=== PATIENT | female | born 1935 | race African-American/Black ===

== ENCOUNTER 2017-04-19 09:59 | Inpatient (IN) | payer OTHER ==
--- NOTE | 2017-04-19 10:47 | PDOC ---
History of Present Illness - General Chief Complaint: Injury Stated Complaint: FALL Time Seen by Provider: 04/19/17 10:26 History Source: Patient Exam Limitations: No Limitations - History of Present Illness Initial Comments: 04/19/17 10:45 Patient is an 82F with history of CHF, CKD, HTN, Asthma, COPD, and DM here today sent by her PCP for falls, concern for chf versus acute renal failure. She says that she's fallen twice in the past week, once 6 days ago and another 4 days ago. 6 days ago, she fell and hit her face. 4 days ago, she fell to her knees. She denies any chest pain, shortness of breath, dizziness, palpitations and any sort of inciting event. She denies loss of consciousness, nausea, vomiting and confusion. She's complaining of increasing orthopnea, difficulty sleeping and increased leg swelling. She's also complaining of increasing erythema and discharge to her lower legs, especially on the right side. Denies fevers, endorses chills. Past History - Past Medical History Allergies/Adverse Reactions: Allergies Allergy/AdvReac Type Severity Reaction Status Date / Time colchicine [From Colcrys] Allergy Intermediate Swelling Verified 04/19/17 10:13 Home Medications: Ambulatory Orders Allopurinol [Zyloprim -] 200 mg PO DAILY 02/20/15 Aspirin Coated [Ecotrin -] 81 mg PO DAILY 02/20/15 Budesonide/Formeterol Fumarate [SYMBICORT 80/4.5mcg -] 1 inh PO BID 02/20/15 Glipizide [Glipizide ER] 2.5 mg PO DAILY 02/20/15 Lisinopril [Prinivil] 5 mg PO DAILY 02/20/15 Metoprolol Tartrate [Lopressor -] 100 mg PO BID 02/20/15 Omeprazole [Prilosec] 20 mg PO DAILY 02/20/15 Acetaminophen [Pain Reliever] 500 mg PO DAILY PRN 02/24/16 Clonidine Patch [Catapres Tts Patch -] 0.3 mg TD ASDIR 02/24/16 Furosemide [Lasix -] 40 mg PO BID 04/19/17 Anemia: Yes (s/p TKR) Asthma: Yes Cardiac Disorders: Yes (unsure, MD stated heart not what used to be) CVA: No COPD: Yes CHF: Yes Dementia: No Diabetes: Yes GI Disorders: No Disorders: Yes (RENAL INSUFFICIENCY) HTN: Yes Liver Disease: No Seizures: No Thyroid Disease: No - Surgical History Cholecystectomy: Yes Orthopedic Surgery: Yes (,FOOT SX) - Suicide/Smoking/Psychosocial Hx Smoking History: Former smoker Have you smoked in the past 12 months: No Number of Cigarettes Smoked Daily: 20 If you are a former smoker, when did you quit?: 2011 Information on smoking cessation initiated: No Hx Alcohol Use: No Drug/Substance Use Hx: No Substance Use Type: None Hx Substance Use Treatment: No Review of Systems - Review of Systems Comments:: 04/19/17 11:08 GENERAL/CONSTITUTIONAL: No fever. Positive for chills and weakness. HEAD, EYES, EARS, NOSE AND THROAT: No change in vision. No sore throat. CARDIOVASCULAR: No chest pain. Positive for shortness of breath. RESPIRATORY: No cough, wheezing, or hemoptysis. GASTROINTESTINAL: No nausea, vomiting, diarrhea or constipation. GENITOURINARY: No dysuria, frequency, or change in urination. SKIN: Positive for bilateral wounds and erythema in lower extremities NEUROLOGIC: No headache, vertigo, loss of consciousness, or change in strength/ sensation. ENDOCRINE: No increased thirst. No abnormal weight change ALLERGIC/IMMUNOLOGIC: No hives or skin allergy. *Physical Exam - Vital Signs Last Vital Signs Temp Pulse Resp BP Pulse Ox 97.4 F L 69 18 151/69 100 04/19/17 10:13 04/19/17 10:13 04/19/17 10:13 04/19/17 10:13 04/19/17 10:13 - Physical Exam Comments: 04/19/17 11:10 GENERAL: Awake, alert, and fully oriented, in no acute distress HEAD: No signs of trauma, normocephalic, atraumatic EYES: PERRLA, EOMI, sclera anicteric, conjunctiva clear ENT: Auricles normal inspection, hearing grossly normal, nares patent, oropharynx clear without exudates. Moist mucosa NECK: Normal ROM, supple, nontender LUNGS: No distress, speaks full sentences, clear to auscultation bilaterally HEART: Regular rate and rhythm, normal S1 and S2, no murmurs, rubs or gallops, peripheral pulses normal and equal bilaterally. ABDOMEN: Soft, nontender, normoactive bowel sounds. No guarding, no rebound. No masses EXTREMITIES: Bilateral swelling and erythema, right more than left. 2+ pitting edema to knee No clubbing or cyanosis. NEUROLOGICAL: Cranial nerves II through XII grossly intact. Normal speech, no focal sensorimotor deficits SKIN: Warm, Dry, normal turgor ED Treatment Course - LABORATORY CBC & Chemistry Diagram: 04/19/17 10:45 04/19/17 10:45 - RADIOLOGY Radiology Studies Ordered: Category Date Time Status HEAD CT WITHOUT CONTRAST [CT] Stat CT Scan 04/19/17 10:41 Ordered CHEST X-RAY PORTABLE* [RAD] Stat Radiology 04/19/17 10:38 Ordered Medical Decision Making - Medical Decision Making 04/19/17 11:11 82F with history of CHF, HTN, asthma, copd, CKD, and DM here today for falls and increasing CHF symptoms. Vital signs stable and normal. Concerned for CHF exacerbation, cellulitis and head injury. Will evaluate with wound culture, ekg , labs, cxr, and head ct. Will treat with vanc and zosyn. 04/19/17 11:28 Laboratory Tests 04/19/17 04/19/17 10:45 10:45 WBC 10.3 H Hgb 10.5 L D Hct 34.2 Plt Count 209 D BUN 44 H D Creatinine 1.7 H D CBC shows small white count. BUN 44, Cr 1.7. Above last baseline of 1.3. Will hold diuretics. EKG shows normal sinus rhythm, normal rate, normal axis, no st elevation or depression, no t-wave inversions. CXR shows mild cardiomegaly, no acute cardiopulmonary processes. 04/19/17 11:35 BNP 1.5k, trop neg 04/19/17 13:17 CT showed no acute changes 04/19/17 13:[address] Otoole. Admitted to med/surg inpatient. Wanted DVT ultrasound performed. Ordered. *DC/Admit/Observation/Transfer Diagnosis at time of Disposition: Cellulitis - Discharge Dispostion Condition at time of disposition: Stable Admit: Yes
[2017-04-19] MEDS ORDERED: PIPERACILLIN/TAZOB 4.5 GM/100 ML PRE-DOCKED IVPB ONE (10:48)
[2017-04-19] MEDS ORDERED: VANCOMYCIN 1,000 MG in DEXTROSE 5%-WATER - 250 ML IVPB ONE (10:48)
[2017-04-19 10:52] LABS: EOSINOPHIL 1.9 % (0-4.5); MCH 24.1 pg (25.7-33.7); MCHC 30.9 g/dl (32.0-36.0); MEAN CELL VOLUME 78.1 fl (80-96); NEUTROPHILS 80.7 % (42.8-82.8); PLATELET COUNT 209 K/MM3 (134-434); RDW 19.8 % (11.6-15.6); WHITE BLOOD COUNT 10.3 K/mm3 (4.0-10.0)
--- NOTE | 2017-04-19 10:57 | PDOC ---
Attending Attestation - HPI HPI: 04/19/17 11:21 The patient is a 82 year old female, with a significant past medical history of CHF, CAD, HLD,HTN, COPD, Anemia, Asthma who presents to the emergency department sent in by PCP for fall in the past few days. As per patient, she had two unwitnessed falls in her home. Patient states her legs have become increasingly weak. Patient denies any head trauma, LOC or injuries. Patient states after her last fall, she landed on her face however denies any current pain. Patient also complains of orthopnea and increasingly LE edema. She denies chest pain, headache or dizziness. She denies fever, chills, abdominal pain, nausea, vomit, diarrhea or constipation. She denies dysuria, frequency, urgency or hematuria. PCP: Dr. Albin Otoole - Physicial Exam PE: 04/19/17 11:21 GENERAL: Awake, alert, and fully oriented, in no acute distress HEAD: No signs of trauma EYES: PERRLA, EOMI, sclera anicteric, conjunctiva clear ENT: Auricles normal inspection, hearing grossly normal, nares patent, oropharynx clear without exudates. Moist mucosa NECK: Normal ROM, supple, no lymphadenopathy, JVD, or masses LUNGS: Breath sounds equal, clear to auscultation bilaterally. No wheezes, and no crackles HEART: Regular rate and rhythm, normal S1 and S2, no murmurs, rubs or gallops. ABDOMEN: Soft, nontender, normoactive bowel sounds. No guarding, no rebound. No masses EXTREMITIES: Normal range of motion. No clubbing or cyanosis. No cords or tenderness. +Mild erythema to RLE. + 3+ pitting edema. NEUROLOGICAL: CN II-XII intact, 5/5 strength upper and lower extremities, Sensation intact throughout all extremities, No pronator drift, Gait Normal, Speech Normal,Finger to nose intact, Rapid alternating movements intact SKIN: Warm, Dry, normal turgor, no rashes or lesions noted. - Medical Decision Making 04/19/17 11:21 Documentation prepared by Angela Larose, acting as certified medical technician for José Miguel Enciso MD <Angela Larose - Last Filed: 04/19/17 11:21> - Resident Resident Name: Fabio Shafer - ED Attending Attestation I have performed the following: I have examined & evaluated the patient, The case was reviewed & discussed with the resident, I agree w/resident's findings & plan, Exceptions are as noted - Medical Decision Making 04/19/17 10:57 Vital Signs Temp Pulse Resp BP Pulse Ox 97.4 F L 69 18 151/69 100 04/19/17 10:13 04/19/17 10:13 04/19/17 10:13 04/19/17 10:13 04/19/17 10:13 Past medical history of asthma, COPD, diabetes, hypertension, chronic kidney disease, congestive heart failure, coronary disease presents to the emergency department from her primary care physician's office Dr. Albin Otoole for fall. The patient has had 2 separate fall incidences. Her last fall was probably 6 days ago. Since then however, she's been complaining about erythema along the right anterior leg for 2 weeks but no fevers. Also states that she began increasing lotion edema and orthopnea. I suspect that the patient has cellulitis the right lower extremity. Labs and blood cultures ordered. We'll cover with empiric antibodies. However, given the lotion edema, we'll need to investigate CHF versus worsening CKD. Patient should ultimately be admitted to the hospital for further evaluation. 04/19/17 12:26 CT head reviewed. No acute findings. Chest xray reviewed. Mild cardiomegaly. CBC, BMP 04/19/17 10:45 04/19/17 10:45 CMP Sodium 144 mmol/L (136-145) 04/19/17 10:45 Potassium 4.1 mmol/L (3.5-5.1) 04/19/17 10:45 Chloride 108 mmol/L (98-107) H 04/19/17 10:45 Carbon Dioxide 25 mmol/L (21-32) 04/19/17 10:45 Anion Gap 11 (8-16) 04/19/17 10:45 BUN 44 mg/dL (7-18) H D 04/19/17 10:45 Creatinine 1.7 mg/dL (0.55-1.02) H D 04/19/17 10:45 Creat Clearance w eGFR 28.63 (>60) 04/19/17 10:45 Random Glucose 87 mg/dL (74-106) 04/19/17 10:45 Calcium 8.9 mg/dL (8.5-10.1) 04/19/17 10:45 Phosphorus 2.9 mg/dL (2.5-4.9) D 04/19/17 10:45 Magnesium 2.0 mg/dL (1.8-2.4) D 04/19/17 10:45 Total Bilirubin 0.6 mg/dL (0.2-1.0) 04/19/17 10:45 AST 56 U/L (15-37) H D 04/19/17 10:45 ALT 39 U/L (12-78) D 04/19/17 10:45 Alkaline Phosphatase 111 U/L (45-117) D 04/19/17 10:45 Creatine Kinase 1960 IU/L (26-192) H 04/19/17 10:45 Creatine Kinase Index 1.6 % (0.0-5.0) 04/19/17 10:45 CK-MB (CK-2) 32.028 ng/mL (0.5-3.6) H 04/19/17 10:45 Troponin I < 0.02 ng/ml (0.00-0.05) 04/19/17 10:45 B-Natriuretic Peptide 1446.65 pg/ml (5-450) H 04/19/17 10:45 Total Protein 6.3 g/dl (6.4-8.2) L 04/19/17 10:45 Albumin 3.1 g/dl (3.4-5.0) L 04/19/17 10:45 Cr is 1.7 Will admit the patient. <José Miguel Enciso - Last Filed: 04/19/17 12:26> Heart Score/ECG Review #1 ECG reviewed & interpreted by me at: 10:40 04/19/17 11:06 NSR 69, T wave flat III, no std/ephraim, QTC 458 msec <José Miguel Enciso - Last Filed: 04/19/17 12:26>
[2017-04-19 11:10] LABS: INR 1.12 (0.82-1.09); PROTHROMBIN TIME (PATIENT) 12.4 SEC (9.98-11.88)
[2017-04-19 11:19] LABS: ALBUMIN 3.1 g/dl (3.4-5.0); ANION GAP 11 (8-16); CALCIUM 8.9 mg/dL (8.5-10.1); CO2 25 mmol/L (21-32); GLUCOSE,RANDOM 87 mg/dL (74-106); PHOSPHOROUS 2.9 mg/dL (2.5-4.9)
[2017-04-19 11:22] LABS: BILIRUBIN,TOTAL 0.6 mg/dL (0.2-1.0); CREATININE 1.7 mg/dL (0.55-1.02); SGOT/AST 56 U/L (15-37); SGPT/ALT 39 U/L (12-78); TOT PROT 6.3 g/dl (6.4-8.2)
[2017-04-19 11:25] LABS: ALK PHOS 111 U/L (45-117); TROPONIN I < 0.02 ng/ml (0.00-0.05)
[2017-04-19] MEDS ORDERED: VANCOMYCIN 1 GRAM (PRE-DOCKED) 250 ML IVPB ONE (11:27)
[2017-04-19] MEDS ORDERED: CEFTRIAXONE 50 ML ONE (11:27)
[2017-04-19 11:46] LABS: CPK 1960 IU/L (26-192)
[2017-04-19] MEDS ORDERED: PIPERACILLIN/TAZOB 4.5 GM 100 ML IVPB ONE (11:51)
--- NOTE | 2017-04-19 13:50 | EKG ---
Test Reason : Blood Pressure : / mmHG Vent. Rate : 069 BPM Atrial Rate : 069 BPM P-R Int : 176 ms QRS Dur : 082 ms QT Int : 428 ms P-R-T Axes : 059 012 034 degrees QTc Int : 458 ms NORMAL SINUS RHYTHM NORMAL ECG WHEN COMPARED WITH ECG OF 25-FEB-2016 13:40, NO SIGNIFICANT CHANGE WAS FOUND Confirmed by SAM MAR MD ([id number]) on 04/19/2017 1:50:31 PM Referred By: Confirmed By:SAM MAR MD
--- NOTE | 2017-04-19 14:08 | PN ---
Progress Note (short form) - Note Progress Note: ID Discussed with Dr Otoole Issue now increasing LE edema chronic with redness and some pain in right leg NO fevers Selected Entries 04/19/17 10:13 Temperature 97.4 F L Pulse Rate 69 Respiratory 18 Rate Blood Pressure 151/69 Weight 230 lb Lung Clear Cor S1 S2 RR Abd Soft Ext Bilateral LE edema RLE red confluent multiple blisters forming in around the foot ankle Leg minimal tenderness no crepitance Laboratory Tests 04/19/17 04/19/17 10:45 10:45 WBC 10.3 H Hgb 10.5 L D Plt Count 209 D Creat Clearance w eGFR 28.63 AST 56 H D Assessment LE edema in the setting of CHF an COPD Blisters ? infected vs third spacing Diabetes Plan Blood cultures x 2 site CRP Unasy 3 gr then 1.5grs q12H Open blister and culture discussed with ER kaden Miranda MD Problem List - Problems (1) Cellulitis Code(s): L03.90 - CELLULITIS, UNSPECIFIED (2) JAYCOB (acute kidney injury) Code(s): N17.9 - ACUTE KIDNEY FAILURE, UNSPECIFIED (3) CHF (congestive heart failure) Code(s): I50.9 - HEART FAILURE, UNSPECIFIED (4) Diabetes 1.5, managed as type 2 Code(s): E10.9 - TYPE 1 DIABETES MELLITUS WITHOUT COMPLICATIONS
--- NOTE | 2017-04-19 15:02 | HP ---
Admitting History and Physical - Admission Chief Complaint: frequet falling. legs edematous chris. sob. cannote ambulate even w walker lyphoedema History of Present Illness: pt has thin line between renal vs chf History Source: Patient, Family Member Limitations to Obtaining History: Physical Impairment - Past Medical History CLINICAL TRIALS ASSISTANT: Yes: Other (--loss of vision for 30 min--self limited) Cardiovascular: Yes: HTN Pulmonary: Yes: Asthma, COPD Gastrointestinal: Yes: Constipation, GERD Renal/: Yes: Renal Inusuff (unclear baseline) Musculoskeletal: Yes: Chronic low back pain Endocrine: Yes: Diabetes Mellitus - Past Surgical History Past Surgical History: Yes: Appendectomy, Cholecystectomy, Colonoscopy (2011-- diverticulosis), Upper Endoscopy (--hiatal hernia(2011)) - Smoking History Smoking history: Former smoker Have you smoked in the past 12 months: No Aproximately how many cigarettes per day: 20 If you are a former smoker, when did you quit?: 2012 - Alcohol/Substance Use Hx Alcohol Use: No History of Substance Use: reports: None - Social History ADL: Family Assistance History of Recent Travel: No Home Medications - Allergies Allergies/Adverse Reactions: Allergies Allergy/AdvReac Type Severity Reaction Status Date / Time colchicine [From Colcrys] Allergy Intermediate Swelling Verified 04/19/17 10:13 - Home Medications Home Medications: Ambulatory Orders Allopurinol [Zyloprim -] 200 mg PO DAILY 02/20/15 Aspirin Coated [Ecotrin -] 81 mg PO DAILY 02/20/15 Budesonide/Formeterol Fumarate [SYMBICORT 80/4.5mcg -] 1 inh PO BID 02/20/15 Glipizide [Glipizide ER] 2.5 mg PO DAILY 02/20/15 Lisinopril [Prinivil] 5 mg PO DAILY 02/20/15 Metoprolol Tartrate [Lopressor -] 100 mg PO BID 02/20/15 Omeprazole [Prilosec] 20 mg PO DAILY 02/20/15 Acetaminophen [Pain Reliever] 500 mg PO DAILY PRN 02/24/16 Clonidine Patch [Catapres Tts Patch -] 0.3 mg TD ASDIR 02/24/16 Furosemide [Lasix -] 40 mg PO BID 04/19/17 Family Disease History - Family Disease History Family History: Unremarkable Review of Systems - Review of Systems Constitutional: reports: Other (falling weak) Eyes: reports: No Symptoms HENT: reports: No Symptoms Neck: reports: No Symptoms Cardiovascular: reports: Shortness of Breath Respiratory: reports: SOB Gastrointestinal: reports: No Symptoms Genitourinary: reports: No Symptoms Breasts: reports: No Symptoms Reported Musculoskeletal: reports: Back Pain, Decreased ROM Integumentary: reports: Other (legs blisters edema) Neurological: reports: No Symptoms Endocrine: reports: No Symptoms Hematology/Lymphatic: reports: No Symptoms Psychiatric: reports: No Symptoms Physical Examination Vital Signs: Vital Signs Temperature 97.4 F L 04/19/17 10:13 Pulse Rate 69 04/19/17 10:13 Respiratory Rate 18 04/19/17 10:13 Blood Pressure 151/69 04/19/17 10:13 O2 Sat by Pulse Oximetry (%) 100 04/19/17 10:25 Constitutional: Yes: Well Nourished Eyes: Yes: WNL HENT: Yes: WNL Neck: Yes: WNL Cardiovascular: Yes: Regular Rate and Rhythm Respiratory: Yes: Diminished Gastrointestinal: Yes: WNL ...Rectal Exam: Yes: Deferred Renal/: Yes: WNL Breast(s): Yes: WNL Musculoskeletal: Yes: Joint Stiffness Extremities: Yes: WNL Edema: Yes Edema: LLE: 3+, RLE: 3+ Peripheral Pulses WNL: Yes Integumentary: Yes: Venous Stasis Changes Neurological: Yes: WNL ...Motor Strength: WNL Psychiatric: Yes: WNL Assessment/Plan card f/u nefro f/u [place] cath measure i and o increase lasix dvt prophylaxis
[2017-04-19 15:21] LABS: C-REACTIVE PROTEIN 4.4 MG/DL (0.00-0.3)
[2017-04-19] MEDS ORDERED: AMPICILLIN NA/SULBACTAM NA 3 GM in SODIUM CHLORIDE 100 ML IVPB ONE (16:30)
[2017-04-19] MEDS ORDERED: FUROSEMIDE 40 MG/4 ML INJECTABLE VIAL IVPUSH STA (16:45)
[2017-04-19 17:04] VITALS: BMI 40.0
[2017-04-19] MEDS: glipiZIDE 5 MG TABLET (FP) PO SCH (17:13)
--- NOTE | 2017-04-19 20:48 | CONS ---
DATE OF CONSULTATION: DATE OF DICTATION: 04/19/2017 INFECTIOUS DISEASE CONSULTATION HISTORY OF PRESENT ILLNESS: This is an 82-year-old female with a history of CHF, COPD, hypertension, diabetes, and chronic kidney disease who I am asked to see for lower extremity cellulitis. The patient has chronic lymphedema, and her swelling has gotten recently worse. The history is that she has fallen twice in the past week and fell apparently to her knees. She denies any specific trauma to the lower extremities and denies any fever or chills, noting that the right lower extremity particularly has gotten red and mildly tender. She denies any fever, chills, or other systemic complaints, and is admitted for treatment of cellulitis. PAST MEDICAL HISTORY: As noted above. MEDICATIONS AT HOME: Allopurinol, aspirin, Symbicort, glipizide, lisinopril, metoprolol, omeprazole, clonidine, Lasix. ALLERGIES: COLCHICINE. SOCIAL HISTORY: Former smoker, gave this up several years ago, no history of substance abuse. No pets. No travel. No alcohol use. FAMILY HISTORY: Reviewed and noncontributory. REVIEW OF SYSTEMS: Respiratory: Positive for shortness of breath. No cough, hemoptysis, sputum production. Cardiac: No chest pain, palpitations, syncope, murmur. Gastrointestinal: No nausea, vomiting, diarrhea, abdominal pain. Genitourinary: No dysuria, hematuria, frequency. PHYSICAL EXAMINATION: General: She was an alert, pleasant, obese woman in mild respiratory distress. Vital signs: Temperature 97.4, pulse 69, blood pressure 150/70, respirations 18, weight 230 pounds, O2 saturation 100% room air. Neck: Supple. Lungs: Clear to percussion, auscultation. Heart: S1, S2. Regular rhythm without audible murmur. Abdomen: Soft. Positive bowel sounds, nontender. No localized guarding or rebound. No hepatosplenomegaly. Extremities: 3 to 4+ lower extremity anasarca with confluent erythema on the right lower extremity extending around the ankle and up below the knee. An incision on the left knee was noted, indicating prior total knee replacement on the left side. Multiple bullae noted on her dorsum of the foot around her ankle. No crepitation was present, and tenderness throughout the leg was minimal. The white count was 10.3, hemoglobin 10.5, platelets 209, BUN 44, creatinine 1.7, alkaline phosphatase 111, AST 56. ASSESSMENT: An 82-year-old female with multiple comorbidities including obesity, chronic obstructive pulmonary disease, and congestive heart failure presents now with worsening lower limb edema and anasarca associated with multiple bullae on the right lower extremity possibly representing part and parcel of infection or related to third spacing. PLAN: 1. Empiric therapy with ampicillin-sulbactam for polymicrobial coverage of soft tissue infection in light of her history of diabetes with multiple blisters. 2. Blood cultures x2 with CRP. 3. Elevation of the legs. 4. Additional problems include acute kidney injury, COPD, diabetes mellitus, and congestive heart failure. Case was discussed with emergency room staff. CHEVY ARANGO M.D. [id number]
[2017-04-19] MEDS: BUDESONIDE/FORMETEROL FUMARATE 80/4.5 mcg INHALER IH SCH (21:12)
[2017-04-19] MEDS: METOPROLOL TARTRATE 50 MG TABLET (FP) PO SCH (21:12)
[2017-04-19] MEDS ORDERED: FUROSEMIDE 40 MG/4 ML INJECTABLE VIAL IVPUSH ONE (22:00)
[2017-04-19] MEDS: AMPICILLIN NA/SULBACTAM NA 1.5 GM in SODIUM CHLORIDE 100 ML IVPB SCH (23:50)
[2017-04-20] MEDS: ACETAMINOPHEN 325 MG TABLET (FP) PO PRN ×2 (01:14→12:55)
[2017-04-20] MEDS: FUROSEMIDE 40 MG/4 ML INJECTABLE VIAL IVPB SCH ×2 (05:51→13:39)
[2017-04-20] MEDS: glipiZIDE 5 MG TABLET (FP) PO SCH ×2 (06:38→17:03)
[2017-04-20 07:35] LABS: BASOPHIL 0.3 % (0-2.0); EOSINOPHIL 1.8 % (0-4.5); MCH 24.6 pg (25.7-33.7); MCHC 30.9 g/dl (32.0-36.0); MEAN CELL VOLUME 79.6 fl (80-96); MEAN PLT VOLUME 9.5 fl (7.5-11.1); NEUTROPHILS 79.2 % (42.8-82.8); PLATELET COUNT 186 K/MM3 (134-434); RDW 20.2 % (11.6-15.6); WHITE BLOOD COUNT 9.2 K/mm3 (4.0-10.0)
[2017-04-20 07:56] LABS: ALBUMIN 2.5 g/dl (3.4-5.0); ALK PHOS 84 U/L (45-117); ANION GAP 5 (8-16); BILIRUBIN,TOTAL 0.3 mg/dL (0.2-1.0); CALCIUM 8.3 mg/dL (8.5-10.1); CO2 30 mmol/L (21-32); CREATININE 1.8 mg/dL (0.55-1.02); GLUCOSE,RANDOM 74 mg/dL (74-106); SGOT/AST 39 U/L (15-37); SGPT/ALT 31 U/L (12-78); TOT PROT 5.3 g/dl (6.4-8.2)
[2017-04-20] MEDS ORDERED: ASPIRIN 81 MG CHEWABLE TABLETS PO SCH (10:00)
[2017-04-20] MEDS: AMPICILLIN NA/SULBACTAM NA 1.5 GM in SODIUM CHLORIDE 100 ML IVPB SCH ×2 (10:52→21:16)
[2017-04-20] MEDS: LISINOPRIL 5 MG TABLET (FP) PO SCH (10:53)
[2017-04-20] MEDS: ASPIRIN COATED 81 MG TABLET.EC PO SCH (10:53)
[2017-04-20] MEDS: BUDESONIDE/FORMETEROL FUMARATE 80/4.5 mcg INHALER IH SCH ×2 (10:53→21:17)
[2017-04-20] MEDS: METOPROLOL TARTRATE 50 MG TABLET (FP) PO SCH ×2 (10:53→21:17)
[2017-04-20] MEDS: ALLOPURINOL 100 MG TABLET (FP) PO SCH (10:53)
[2017-04-20] MEDS: cloNIDine-TTS 0.3 MG /24 HRS PATCH.TDWK TD SCH (10:54)
--- NOTE | 2017-04-20 10:57 | PN ---
Progress Note, Physician History of Present Illness: pt feels less sob legs n/c - Current Medication List Current Medications: Active Medications Acetaminophen (Tylenol -) 650 mg PO Q6H PRN PRN Reason: FEVER OR PAIN Last Admin: 04/20/17 01:14 Dose: 650 mg Albuterol Sulfate (Ventolin Hfa Inhaler -) 2 puff IH Q4H PRN PRN Reason: SHORT OF BREATH/WHEEZING Allopurinol (Zyloprim -) 100 mg PO DAILY [facility] Aspirin (Ecotrin -) 81 mg PO DAILY [facility] Budesonide/Formoterol Fumarate (Symbicort 80/4.5mcg -) 2 puff IH BID [facility] Last Admin: 04/19/17 21:12 Dose: 2 puff Clonidine HCl (Catapres Tts Patch -) 0.3 mg TD Q7D@1000 [facility] Furosemide (Lasix Injection -) 80 mg IVPB BID@0600,1400 [facility] Last Admin: 04/20/17 05:51 Dose: 80 mg Glipizide (Glucotrol -) 5 mg PO BID@0700,1630 [facility] Last Admin: 04/20/17 06:38 Dose: Not Given Ampicillin Sodium/Sulbactam (Sodium 1.5 gm/ Sodium Chloride) 100 mls @ 200 mls/ hr IVPB BID [facility] Last Admin: 04/19/17 23:50 Dose: 200 mls/hr Lisinopril (Prinivil) 5 mg PO DAILY [facility] Metoprolol Tartrate (Lopressor -) 100 mg PO BID [facility] Last Admin: 04/19/17 21:12 Dose: 100 mg - Objective Vital Signs: Vital Signs Temperature 98.5 F 04/20/17 09:00 Pulse Rate 64 04/20/17 09:00 Respiratory Rate 22 04/20/17 09:00 Blood Pressure 134/63 04/20/17 09:00 O2 Sat by Pulse Oximetry (%) 98 04/20/17 01:00 Constitutional: Yes: Well Nourished Eyes: Yes: WNL HENT: Yes: WNL Neck: Yes: WNL Cardiovascular: Yes: WNL Respiratory: Yes: On Nasal O2, SOB on Exertion ...Rectal Exam: Yes: Deferred Genitourinary: Yes: [place] Present Breast(s): Yes: WNL Musculoskeletal: Yes: Joint Stiffness Extremities: Yes: WNL Edema: Yes Edema: LLE: 3+, RLE: 3+ Peripheral Pulses: Left Radial: 1+, Right Radial: 1+ Integumentary: Yes: Other (legs brueny lyphodema) Psychiatric: Yes: WNL Labs: CBC, BMP 04/20/17 06:00 04/20/17 06:00 INR, PTT INR 1.12 (0.82-1.09) 04/19/17 10:45 Assessment/Plan fs bid support stocking p/t started card to see pt ? lasix dosing oob d/c qid vss do them qd cont inhalers and o2 doubt if atx needed nefro to see pt watch renal numbers remember thin line chf vs renal comprimise chk iu and o
--- NOTE | 2017-04-20 14:05 | CONSULT ---
Consult Consult Specialty:: Nephrology Reason for Consultation:: JAYCOB - History of Present Illness Chief Complaint: lower extremity edema and shortness of breath History of Present Illness: Pt is an 82 year old female with pmhx of CHF, CKD, HTN, COPD, and DM who was sent in for shortness of breath and lower extremity edema. She says that she has increased swelling in her legs. She also complains of increased shortness of breath. She has increased fatigue and has not bee able to move around much. She felt better with the lasix. She denies nsaid use. She denies hematuria or dysuria. She is awake and alert. - History Source History Provided By: Patient, Medical Record - Past Medical History COMM[employer] HE[employer] COORDINATOR: Yes: Other (--loss of vision for 30 min--self limited) Cardio/Vascular: Yes: HTN Pulmonary: Yes: Asthma, COPD Gastrointestinal: Yes: Constipation, GERD Renal/: Yes: Renal Inusuff (unclear baseline) Musculoskeletal: Yes: Chronic low back pain Endocrine: Yes: Diabetes Mellitus - Past Surgical History Past Surgical History: Yes: Appendectomy, Cholecystectomy, Colonoscopy (2011-- diverticulosis), Upper Endoscopy (--hiatal hernia(2011)) - Alcohol/Substance Use Hx Alcohol Use: No History of Substance Use: reports: None - Smoking History Smoking history: Former smoker Have you smoked in the past 12 months: No Aproximately how many cigarettes per day: 20 If you are a former smoker, when did you quit?: 2011 - Social History ADL: Family Assistance History of Recent Travel: No Home Medications - Allergies Allergies/Adverse Reactions: Allergies Allergy/AdvReac Type Severity Reaction Status Date / Time colchicine [From Colcrys] Allergy Intermediate Swelling Verified 04/19/17 10:13 - Home Medications Home Medications: Ambulatory Orders Allopurinol [Zyloprim -] 200 mg PO DAILY 02/20/15 Aspirin Coated [Ecotrin -] 81 mg PO DAILY 02/20/15 Budesonide/Formeterol Fumarate [SYMBICORT 80/4.5mcg -] 1 inh PO BID 02/20/15 Glipizide [Glipizide ER] 2.5 mg PO DAILY 02/20/15 Lisinopril [Prinivil] 5 mg PO DAILY 02/20/15 Metoprolol Tartrate [Lopressor -] 100 mg PO BID 02/20/15 Omeprazole [Prilosec] 20 mg PO DAILY 02/20/15 Acetaminophen [Pain Reliever] 500 mg PO DAILY PRN 02/24/16 Clonidine Patch [Catapres Tts Patch -] 0.3 mg TD ASDIR 02/24/16 Furosemide [Lasix -] 40 mg PO BID 04/19/17 Family Disease History - Family Disease History Family History: Denies Review of Systems - Review of Systems Constitutional: reports: Malaise Eyes: reports: No Symptoms HENT: reports: No Symptoms Neck: reports: No Symptoms Cardiovascular: reports: Edema, Shortness of Breath Respiratory: reports: SOB, SOB on Exertion Genitourinary: reports: No Symptoms Musculoskeletal: reports: Extremity Pain Neurological: reports: No Symptoms Hematology/Lymphatic: reports: No Symptoms Psychiatric: reports: No Symptoms Physical Exam Vital Signs: Vital Signs Temperature 98.5 F 04/20/17 09:00 Pulse Rate 64 04/20/17 09:00 Respiratory Rate 22 04/20/17 09:00 Blood Pressure 134/63 04/20/17 09:00 O2 Sat by Pulse Oximetry (%) 100 04/20/17 09:00 Constitutional: Yes: Calm Eyes: Yes: Conjunctiva Clear HENT: Yes: Atraumatic Cardiovascular: Yes: S1, S2 Respiratory: Yes: On Nasal O2 Gastrointestinal: Yes: Soft, Abdomen, Obese Renal/: Yes: WNL Musculoskeletal: Yes: Muscle Weakness Edema: Yes Edema: LLE: 1+, RLE: 1+ Integumentary: Yes: Venous Stasis Changes Neurological: Yes: Oriented Psychiatric: Yes: Oriented Labs: CBC, BMP 04/20/17 06:00 04/20/17 06:00 Laboratory Tests 02/29/16 03/01/16 03/02/16 05:15 07:25 06:45 WBC Hgb Sodium Potassium Chloride Carbon Dioxide Anion Gap BUN Creatinine 1.3 H 1.3 H 1.3 H 04/19/17 04/19/17 04/20/17 10:45 10:45 06:00 WBC 10.3 H 9.2 Hgb 10.5 L D 9.5 L Sodium Potassium Chloride Carbon Dioxide Anion Gap BUN Creatinine 1.7 H D 04/20/17 06:00 WBC Hgb Sodium 144 Potassium 4.2 Chloride 109 H Carbon Dioxide 30 Anion Gap 5 L BUN 44 H Creatinine 1.8 H Imaging - Results Chest X-ray: Report Reviewed Problem List - Problems (1) CHF (congestive heart failure) Code(s): I50.9 - HEART FAILURE, UNSPECIFIED (2) Cellulitis Code(s): L03.90 - CELLULITIS, UNSPECIFIED (3) JAYCOB (acute kidney injury) Code(s): N17.9 - ACUTE KIDNEY FAILURE, UNSPECIFIED Assessment/Plan Current Medications Generic Name Dose Route Start Last Admin Trade Name Freq PRN Reason Stop Dose Admin Acetaminophen 650 mg 04/19/17 20:53 04/20/17 12:55 Tylenol - PO 650 mg Q6H PRN Administration FEVER OR PAIN Albuterol Sulfate 2 puff 04/19/17 15:17 Ventolin Hfa Inhaler - IH Q4H PRN SHORT OF BREATH/WHEEZING Allopurinol 100 mg 04/20/17 10:00 04/20/17 10:53 Zyloprim - PO 100 mg DAILY [facility] Administration Aspirin 81 mg 04/20/17 10:00 04/20/17 10:53 Ecotrin - PO 81 mg DAILY [facility] Administration Budesonide/Formoterol Fumarate 2 puff 04/19/17 22:00 04/20/17 10:53 Symbicort 80/4.5mcg - IH 2 puff BID [facility]IO Administration Clonidine HCl 0.3 mg 04/20/17 10:00 04/20/17 10:54 Catapres Tts Patch - TD 0.3 mg Q7D@1000 [facility] Administration Furosemide 80 mg 04/20/17 06:00 04/20/17 13:39 Lasix Injection - IVPB Not Given BID@0600,1400 [facility] Glipizide 5 mg 04/19/17 16:30 04/20/17 06:38 Glucotrol - PO Not Given BID@0700,1630 [facility] Ampicillin Sodium/Sulbactam 100 mls @ 200 mls/hr 04/19/17 22:00 04/20/17 10:52 Sodium 1.5 gm/ Sodium Chloride IVPB 200 mls/hr BID [facility] Administration Lisinopril 5 mg 04/20/17 10:00 04/20/17 10:53 Prinivil PO 5 mg DAILY [facility] Administration Metoprolol Tartrate 100 mg 04/19/17 22:00 04/20/17 10:53 Lopressor - PO 100 mg BID [facility] Administration Impression 1. JAYCOB 2. dyspnea 3. HTN 4. COPD 5. DM Plan - check renal ultrasound - check ua and lytes - hold lasix today - discussed with pmd - cont lisinopril but hold if renal function worsens tomorrow - check echo - will follow Dr Valero
--- NOTE | 2017-04-20 15:17 | PN ---
Progress Note, Physician Chief Complaint: Awake, alert No c/o leg pain No fever/ chills - Current Medication List Current Medications: Active Medications Acetaminophen (Tylenol -) 650 mg PO Q6H PRN PRN Reason: FEVER OR PAIN Last Admin: 04/20/17 12:55 Dose: 650 mg Albuterol Sulfate (Ventolin Hfa Inhaler -) 2 puff IH Q4H PRN PRN Reason: SHORT OF BREATH/WHEEZING Allopurinol (Zyloprim -) 100 mg PO DAILY [facility] Last Admin: 04/20/17 10:53 Dose: 100 mg Aspirin (Ecotrin -) 81 mg PO DAILY [facility] Last Admin: 04/20/17 10:53 Dose: 81 mg Budesonide/Formoterol Fumarate (Symbicort 80/4.5mcg -) 2 puff IH BID [facility] Last Admin: 04/20/17 10:53 Dose: 2 puff Clonidine HCl (Catapres Tts Patch -) 0.3 mg TD Q7D@1000 [facility] Last Admin: 04/20/17 10:54 Dose: 0.3 mg Furosemide (Lasix Injection -) 80 mg IVPB BID@0600,1400 [facility] Last Admin: 04/20/17 13:39 Dose: Not Given Glipizide (Glucotrol -) 5 mg PO BID@0700,1630 [facility] Last Admin: 04/20/17 06:38 Dose: Not Given Ampicillin Sodium/Sulbactam (Sodium 1.5 gm/ Sodium Chloride) 100 mls @ 200 mls/ hr IVPB BID [facility] Last Admin: 04/20/17 10:52 Dose: 200 mls/hr Lisinopril (Prinivil) 5 mg PO DAILY [facility] Last Admin: 04/20/17 10:53 Dose: 5 mg Metoprolol Tartrate (Lopressor -) 100 mg PO BID [facility] Last Admin: 04/20/17 10:53 Dose: 100 mg - Objective Vital Signs: Vital Signs Temperature 98.5 F 04/20/17 14:31 Pulse Rate 61 04/20/17 14:31 Respiratory Rate 18 04/20/17 14:31 Blood Pressure 113/44 04/20/17 14:31 O2 Sat by Pulse Oximetry (%) 100 04/20/17 09:00 Constitutional: Yes: Obese Cardiovascular: Yes: Regular Rate and Rhythm, S1, S2 Respiratory: Yes: CTA Bilaterally Gastrointestinal: Yes: Normal Bowel Sounds, Soft, Abdomen, Obese Extremities: Yes: Other (+ erythema R LE No blisters) Integumentary: Yes: Venous Stasis Changes Labs: CBC, BMP 04/20/17 06:00 04/20/17 06:00 INR, PTT INR 1.12 (0.82-1.09) 04/19/17 10:45 Assessment/Plan Cellulitis R LE +wound c/s mixed Await c/s Continue unasyn
[2017-04-20 19:08] LABS: URINE APPEARANCE CLEAR; URINE BILIRUBIN NEGATIVE (NEGATIVE); URINE BLOOD 2+ (NEGATIVE); URINE COLOR YELLOW; URINE GLUCOSE (UA) NEGATIVE (NEGATIVE); URINE KETONE NEGATIVE (NEGATIVE); URINE LEUK ESTERASE NEGATIVE (NEGATIVE); URINE NITRITE NEGATIVE (NEGATIVE); URINE PROTEIN NEGATIVE (NEGATIVE)
--- NOTE | 2017-04-20 19:34 | CONS ---
DATE OF CONSULTATION: 04/20/2017 TIME OF CONSULTATION: 5:20 p.m. CONSULTATION REQUESTED BY: Albin Otoole MD CARDIOLOGY CONSULTATION CHIEF COMPLAINTS: 1. Progressive and extreme fatigue. 2. Profound weakness. 3. Increased somnolence. The patient is an 82-year-old female with history of hypertension, xvn-[id number] diabetes mellitus, bronchial asthma/bronchitis, chronic obstructive pulmonary disease, chronic kidney disease, history of congestive heart failure. Patient was admitted with 2 weeks history of progressive and profound fatigue associated with generalized weakness and had 2 falls in the house when she tried to stand up. Patient has chronic exertional dyspnea, is unable to walk more than 50 yards. At times she has paroxysmal nocturnal dyspnea and has 3-pillow orthopnea. She has a chronic cough that is nonproductive. There is no history of chest, arm, jaw pain or discomfort. Denies having palpitations. She has been noticing increasing pedal edema and had breakdown of the skin and developed cellulitis on both lower extremities. There is no history of lightheadedness, dizziness, presyncope, or syncope. No palpitations were reported. No history of rheumatic fever. States she has generalized osteoarthritis and currently is also complaining of low back pain and has difficulty in moving in the bed. PAST HISTORY: As mentioned in the history of present illness. SURGICAL HISTORY: 1. Status post left rotator cuff surgery. 2. Status post hysterectomy and appendectomy. 3. Status post cholecystectomy. 4. Status post left knee replacement. 5. Status post bilateral cataract extractions. 6. Status post surgery on the 2nd left toe. SOCIAL HISTORY: She is retired, is a , has no children. Used to smoke 1 pack of cigarettes per day starting at the age of 13 and stopped 4 years ago. She states that she has moderate amount of alcohol, drinks 12 to 16 cups of coffee per day. FAMILY HISTORY: Father in his 70s of a myocardial infarction, was a known case of coronary artery disease, status post coronary artery bypass grafting, had chronic obstructive pulmonary disease, was hypertensive, and a smoker. Mother at the age of 86. She was hypertensive, had coronary artery disease, angina pectoris. She had 4 sisters; all of them are : One of aneurysm of the brain; 2 sisters of coronary artery disease, myocardial infarction; and a 4th sister related to cancer, site uncertain. ALLERGIES: As documented in the chart, COLCHICINE. CURRENT MEDICATIONS: 1. Symbicort 2 inhalations b.i.d. 2. Lisinopril 5 mg p.o. daily. 3. Ampicillin 1.5 g IV b.i.d. 4. Allopurinol 100 mg p.o. daily. 5. Albuterol 2 inhalations q.i.d. p.r.n. 6. Metoprolol tartrate 100 mg p.o. b.i.d. 7. Clonidine 0.3 mg patch. 8. Lasix 80 mg IV daily. 9. Aspirin 81 mg p.o. daily. 10. Glipizide 5 mg p.o. b.i.d. before meals. REVIEW OF SYSTEMS: Constitutional: No history of chills, fever or night sweats reported. No history of unintentional weight loss. HEENT: Occasional generalized headache. No history of diplopia, blurred vision reported. No history of epistaxis, hoarseness, tinnitus or deafness. Cardiovascular: See history of present illness. Respiratory: See history of present illness. No history of hemoptysis or tuberculosis. Gastrointestinal: No history of nausea, vomiting, melena, or hematemesis. No history of loss of appetite. No history of abdominal pain or discomfort. No history of change in bowel habits. Central nervous system: No history of seizures, syncope, focal weakness. See history of present illness. Musculoskeletal: History of generalized osteoarthritis. No history of myalgias. Endocrine: See history of present illness. Denies having polyuria or polydipsia. No history of intolerance to cold or warm weather. Genitourinary: Denies having dysuria, frequency, urgency or hematuria. See history of present illness. Hematological: No history of anemia. No history of ecchymosis or bleeding. EXAMINATION: General: An 82-year-old obese female, who was in no acute distress. There was no pallor. There was ? circumoral cyanosis. Vital Signs: Weight 260 pounds. Blood pressure 109/45 mmHg. Pulse 62 beats per minute and regular. Temperature 98.7 degrees Fahrenheit. Respirations were 18 per minute. Oxygen saturation on nasal oxygen was 100%. HEENT: Normocephalic. Pupils were equal, reacting to light and accommodation. No scleral icterus or conjunctival pallor. Bilateral arcus senilis. Neck: Short, supple. No jugular venous distention. Carotids were 1 to 2+. Upstrokes grossly appeared to be normal. No bruits were appreciated and no thyromegaly was felt. Heart: PMI was not localized. No heaves or thrills. Heart sounds were distant. No murmur or gallops were appreciated. Lungs: Decreased breath sounds at both bases. No extraneous sounds were heard. Abdomen: Markedly obese, soft and nontender. No hepatosplenomegaly or palpable masses were appreciated. Bowel sounds were distant. No bruits were appreciated. Extremities: Both lower extremities were wrapped. Dorsalis pedis and posterior tibial pulses could not be palpated. LABORATORY DATA: ECG dated April 19, 2017: Normal sinus rhythm, nonspecific T-wave changes. Compared to ECG of February 25, 2016, no major changes were reported. X-ray of chest, April 19, 2017: Impression: Mild cardiomegaly without evidence of acute lung disease. LABORATORY DATA: CBC: WBC count 9200, hemoglobin was 9.5 g/dL. There were microcytic cell indices. Platelet count was 186,000. Chemistry: Sodium 144, potassium 4.2, chloride 109, CO2 of 13 mmol/L. BUN 44, creatinine 1.8 mg/dL. AST was slightly elevated at 39. Total protein 5.3, albumin was 2.5 g/dL. CK on admission was 1960, troponin was less than 0.002. BNP was elevated at 1446.65. IMPRESSION: 1. Hypertension, hypertensive cardiovascular disease. 2. History of asthmatic bronchitis/chronic obstructive pulmonary disease. 3. Profound fatigue, increased somnolence, and generalized weakness. Etiology: A. Coronary artery disease, angina pectoris. B. Obstructive sleep apnea syndrome. C. Hypothyroidism needs to be excluded. 4. Microcytic anemia. 5. Cellulitis of both lower extremities. 6. Chronic kidney disease. 7. Morbid obesity. 8. Congestive heart failure/cor pulmonale needs exclusion. RECOMMENDATIONS: 1. T3, T4, TSH. 2. Echocardiogram. 3. Evaluation of anemia and appropriate correction. 4. Continue current antihypertensive therapy. 5. Daily weight. 6. Check oxygen saturation on exertion. 7. Patient should be evaluated for obstructive sleep apnea syndrome, if not already done. PROGNOSIS: Guarded. Thank you for your referral. Yours sincerely, Aishwarya [id number]
[2017-04-20] MEDS ORDERED: PT OWN MED DRAWER 7, Y5N ONE (20:41)
[2017-04-20 20:52] LABS: URINE MUCUS RARE; URINE RBC 5 /hpf (0-3); URINE WBC 4 /hpf (3-5)
[2017-04-21] MEDS: glipiZIDE 5 MG TABLET (FP) PO SCH ×2 (07:13→16:42)
[2017-04-21 07:33] LABS: BASOPHIL 0.3 % (0-2.0); EOSINOPHIL 2.6 % (0-4.5); MCH 24.7 pg (25.7-33.7); MCHC 30.9 g/dl (32.0-36.0); MEAN CELL VOLUME 79.7 fl (80-96); MEAN PLT VOLUME 9.1 fl (7.5-11.1); NEUTROPHILS 76.4 % (42.8-82.8); PLATELET COUNT 187 K/MM3 (134-434); RDW 19.9 % (11.6-15.6); WHITE BLOOD COUNT 9.1 K/mm3 (4.0-10.0)
[2017-04-21 07:48] LABS: ANION GAP 5 (8-16); CALCIUM 7.9 mg/dL (8.5-10.1); CO2 30 mmol/L (21-32); CREATININE 1.6 mg/dL (0.55-1.02); GLUCOSE,RANDOM 98 mg/dL (74-106)
[2017-04-21] MEDS ORDERED: PT OWN MED DRAWER 7, Y5N ONE ×3 (09:23→21:23)
[2017-04-21] MEDS: ALLOPURINOL 100 MG TABLET (FP) PO SCH (09:26)
[2017-04-21] MEDS: LISINOPRIL 5 MG TABLET (FP) PO SCH (09:26)
[2017-04-21] MEDS: METOPROLOL TARTRATE 50 MG TABLET (FP) PO SCH ×2 (09:26→22:21)
[2017-04-21] MEDS: BUDESONIDE/FORMETEROL FUMARATE 80/4.5 mcg INHALER IH SCH ×2 (09:26→22:21)
[2017-04-21] MEDS: ASPIRIN COATED 81 MG TABLET.EC PO SCH (09:26)
[2017-04-21] MEDS: AMPICILLIN NA/SULBACTAM NA 1.5 GM in SODIUM CHLORIDE 100 ML IVPB SCH ×2 (09:27→22:21)
--- NOTE | 2017-04-21 12:59 | PN ---
Progress Note, Physician Chief Complaint: comfortable vss p/t oob lasix 40 bid zen bianka and tyrellsandoval to see pt chk labs in am jin scott today - Current Medication List Current Medications: Active Medications Acetaminophen (Tylenol -) 650 mg PO Q6H PRN PRN Reason: FEVER OR PAIN Last Admin: 04/20/17 12:55 Dose: 650 mg Albuterol Sulfate (Ventolin Hfa Inhaler -) 2 puff IH Q4H PRN PRN Reason: SHORT OF BREATH/WHEEZING Allopurinol (Zyloprim -) 100 mg PO DAILY [facility] Last Admin: 04/21/17 09:26 Dose: 100 mg Aspirin (Ecotrin -) 81 mg PO DAILY [facility] Last Admin: 04/21/17 09:26 Dose: 81 mg Budesonide/Formoterol Fumarate (Symbicort 80/4.5mcg -) 2 puff IH BID [facility] Last Admin: 04/21/17 09:26 Dose: 2 puff Clonidine HCl (Catapres Tts Patch -) 0.3 mg TD Q7D@1000 [facility] Last Admin: 04/20/17 10:54 Dose: 0.3 mg Furosemide (Lasix Injection -) 80 mg IVPB BID@0600,1400 [facility] Last Admin: 04/20/17 13:39 Dose: Not Given Furosemide (Lasix Injection -) 40 mg IVPB BID@0600,1400 [facility] Glipizide (Glucotrol -) 5 mg PO BID@0700,1630 [facility] Last Admin: 04/21/17 07:13 Dose: Not Given Ampicillin Sodium/Sulbactam (Sodium 1.5 gm/ Sodium Chloride) 100 mls @ 200 mls/ hr IVPB BID [facility] Last Admin: 04/21/17 09:27 Dose: 200 mls/hr Lisinopril (Prinivil) 5 mg PO DAILY [facility] Last Admin: 04/21/17 09:26 Dose: 5 mg Metoprolol Tartrate (Lopressor -) 100 mg PO BID [facility] Last Admin: 04/21/17 09:26 Dose: 100 mg - Objective Vital Signs: Vital Signs Temperature 98.6 F 04/21/17 09:00 Pulse Rate 69 04/21/17 09:00 Respiratory Rate 20 04/21/17 09:00 Blood Pressure 116/52 04/21/17 09:00 O2 Sat by Pulse Oximetry (%) 100 09/20/17 09:00 Labs: CBC, BMP 04/21/17 06:00 04/21/17 06:00 INR, PTT INR 1.12 (0.82-1.09) 04/19/17 10:45
--- NOTE | 2017-04-21 14:47 | PN ---
Progress Note, Physician History of Present Illness: Pt seen and examined at bedside. She is awake and alert. She feels that her breathing is improved today. - Current Medication List Current Medications: Active Medications Acetaminophen (Tylenol -) 650 mg PO Q6H PRN PRN Reason: FEVER OR PAIN Last Admin: 04/20/17 12:55 Dose: 650 mg Albuterol Sulfate (Ventolin Hfa Inhaler -) 2 puff IH Q4H PRN PRN Reason: SHORT OF BREATH/WHEEZING Allopurinol (Zyloprim -) 100 mg PO DAILY [facility] Last Admin: 04/21/17 09:26 Dose: 100 mg Aspirin (Ecotrin -) 81 mg PO DAILY [facility] Last Admin: 04/21/17 09:26 Dose: 81 mg Budesonide/Formoterol Fumarate (Symbicort 80/4.5mcg -) 2 puff IH BID [facility] Last Admin: 04/21/17 09:26 Dose: 2 puff Clonidine HCl (Catapres Tts Patch -) 0.3 mg TD Q7D@1000 [facility] Last Admin: 04/20/17 10:54 Dose: 0.3 mg Furosemide (Lasix Injection -) 80 mg IVPB BID@0600,1400 [facility] Last Admin: 04/20/17 13:39 Dose: Not Given Furosemide (Lasix Injection -) 40 mg IVPB BID@0600,1400 [facility] Glipizide (Glucotrol -) 5 mg PO BID@0700,1630 [facility] Last Admin: 04/21/17 07:13 Dose: Not Given Ampicillin Sodium/Sulbactam (Sodium 1.5 gm/ Sodium Chloride) 100 mls @ 200 mls/ hr IVPB BID [facility] Last Admin: 04/21/17 09:27 Dose: 200 mls/hr Lisinopril (Prinivil) 5 mg PO DAILY [facility] Last Admin: 04/21/17 09:26 Dose: 5 mg Metoprolol Tartrate (Lopressor -) 100 mg PO BID [facility] Last Admin: 04/21/17 09:26 Dose: 100 mg - Objective Vital Signs: Vital Signs Temperature 98.6 F 04/21/17 09:00 Pulse Rate 69 04/21/17 09:00 Respiratory Rate 20 04/21/17 09:00 Blood Pressure 116/52 04/21/17 09:00 O2 Sat by Pulse Oximetry (%) 100 04/21/17 09:00 Constitutional: Yes: Calm Eyes: Yes: Conjunctiva Clear HENT: Yes: Atraumatic Cardiovascular: Yes: S1, S2 Respiratory: Yes: On Nasal O2 Gastrointestinal: Yes: Soft, Abdomen, Obese Genitourinary: Yes: WNL Musculoskeletal: Yes: WNL Edema: Yes Edema: LLE: 1+, RLE: 1+ Neurological: Yes: Oriented Psychiatric: Yes: Oriented Labs: CBC, BMP 04/21/17 06:00 04/21/17 06:00 INR, PTT INR 1.12 (0.82-1.09) 04/19/17 10:45 Problem List - Problems (1) CHF (congestive heart failure) Code(s): I50.9 - HEART FAILURE, UNSPECIFIED (2) Cellulitis Code(s): L03.90 - CELLULITIS, UNSPECIFIED (3) JAYCOB (acute kidney injury) Code(s): N17.9 - ACUTE KIDNEY FAILURE, UNSPECIFIED Assessment/Plan Current Medications Generic Name Dose Route Start Last Admin Trade Name Freq PRN Reason Stop Dose Admin Acetaminophen 650 mg 04/19/17 20:53 04/20/17 12:55 Tylenol - PO 650 mg Q6H PRN Administration FEVER OR PAIN Albuterol Sulfate 2 puff 04/19/17 15:17 Ventolin Hfa Inhaler - IH Q4H PRN SHORT OF BREATH/WHEEZING Allopurinol 100 mg 04/20/17 10:00 04/21/17 09:26 Zyloprim - PO 100 mg DAILY [facility] Administration Aspirin 81 mg 04/20/17 10:00 04/21/17 09:26 Ecotrin - PO 81 mg DAILY [facility] Administration Budesonide/Formoterol Fumarate 2 puff 04/19/17 22:00 04/21/17 09:26 Symbicort 80/4.5mcg - IH 2 puff BID [facility] Administration Clonidine HCl 0.3 mg 04/20/17 10:00 04/20/17 10:54 Catapres Tts Patch - TD 0.3 mg Q7D@1000 [facility] Administration Furosemide 80 mg 04/20/17 06:00 04/20/17 13:39 Lasix Injection - IVPB Not Given BID@0600,1400 [facility] Furosemide 40 mg 04/21/17 14:00 Lasix Injection - IVPB BID@0600,1400 [facility] Glipizide 5 mg 04/19/17 16:30 04/21/17 07:13 Glucotrol - PO Not Given BID@0700,1630 [facility] Ampicillin Sodium/Sulbactam 100 mls @ 200 mls/hr 04/19/17 22:00 04/21/17 09:27 Sodium 1.5 gm/ Sodium Chloride IVPB 200 mls/hr BID [facility] Administration Lisinopril 5 mg 04/20/17 10:00 04/21/17 09:26 Prinivil PO 5 mg DAILY [facility] Administration Metoprolol Tartrate 100 mg 04/19/17 22:00 04/21/17 09:26 Lopressor - PO 100 mg BID [facility] Administration Impression 1. JAYCOB 2. dyspnea 3. HTN 4. COPD 5. DM Plan - follow up renal ultrasound - renal function is improving - will give a dose of lasix today - 2 gram sodium diet - cont lisinopril - spoke to nurse, she will give her a dose of lasix - will follow Dr Valero
--- NOTE | 2017-04-21 16:34 | PN ---
Progress Note (short form) - Note Progress Note: continued leg pain Vital Signs Period Temp Pulse Resp BP Sys/Red Pulse Ox Last 24 Hr 98.2 F-99.8 F 63-70 18-20 108-125/45-58 99-100 cor-rrr lungs clear abd soft,nt ext less erythema and tenderness of the RLE CBC, BMP 04/21/17 06:00 04/21/17 06:00 Microbiology 04/19/17 10:51 Wound Gram Stain - Final 04/19/17 10:51 Wound Wound Culture - Preliminary Non Lactose Fermenting Gnb Staphylococcus Coagulase Neg 04/19/17 15:15 Blood - Peripheral Venous Blood Culture - Preliminary NO GROWTH OBTAINED AFTER 48 HOURS, INCUBATION TO CONTINUE FOR 3 DAYS. 04/19/17 15:15 Blood - Peripheral Venous Blood Culture - Preliminary NO GROWTH OBTAINED AFTER 48 HOURS, INCUBATION TO CONTINUE FOR 3 DAYS. a/p RLE cellulitis- improving on unasyn
[2017-04-21] MEDS: FUROSEMIDE 40 MG/4 ML INJECTABLE VIAL IVPB SCH (16:42)
--- NOTE | 2017-04-21 17:12 | PN ---
Progress Note (short form) - Note Progress Note: 82 year old AA female,known case of hypertension,recent syncope,NIDDm.bronchial asthma.copd.hypertension.H/o was recent progressive headache,admitted wih sudden LOC of syncope,which occurred after he had severe and transient LOC.Currentiy doing better,still c/o mild lightheadedness on standing.mild sob, no PND or orthopnea.tolerating therapy. Active Medications Acetaminophen (Tylenol -) 650 mg PO Q6H PRN PRN Reason: FEVER OR PAIN Last Admin: 04/20/17 12:55 Dose: 650 mg Albuterol Sulfate (Ventolin Hfa Inhaler -) 2 puff IH Q4H PRN PRN Reason: SHORT OF BREATH/WHEEZING Allopurinol (Zyloprim -) 100 mg PO DAILY [facility] Last Admin: 04/21/17 09:26 Dose: 100 mg Aspirin (Ecotrin -) 81 mg PO DAILY [facility] Last Admin: 04/21/17 09:26 Dose: 81 mg Budesonide/Formoterol Fumarate (Symbicort 80/4.5mcg -) 2 puff IH BID [facility] Last Admin: 04/21/17 09:26 Dose: 2 puff Clonidine HCl (Catapres Tts Patch -) 0.3 mg TD Q7D@1000 [facility] Last Admin: 04/20/17 10:54 Dose: 0.3 mg Furosemide (Lasix Injection -) 80 mg IVPB BID@0600,1400 [facility] Last Admin: 04/20/17 13:39 Dose: Not Given Furosemide (Lasix Injection -) 40 mg IVPB BID@0600,1400 [facility] Last Admin: 04/21/17 16:42 Dose: 40 mg Glipizide (Glucotrol -) 5 mg PO BID@0700,1630 [facility] Last Admin: 04/21/17 16:42 Dose: 5 mg Ampicillin Sodium/Sulbactam (Sodium 1.5 gm/ Sodium Chloride) 100 mls @ 200 mls/ hr IVPB BID [facility] Last Admin: 04/21/17 09:27 Dose: 200 mls/hr Lisinopril (Prinivil) 5 mg PO DAILY [facility] Last Admin: 04/21/17 09:26 Dose: 5 mg Metoprolol Tartrate (Lopressor -) 50 mg PO BID [facility] 82 year old obese female in no distress,no pallor, cyanosis,clubbing or jaundice Vital Signs - 8 hr 04/21/17 14:55 Temperature 98.2 F Pulse Rate 70 Respiratory 18 Rate Blood Pressure 125/53 NECK: Supple, no JVD,-ve HJR,carotids2+,no bruits or thyromegaly. HEART: PMI was not localised,distant sounds,no murmur or gallops heard LUNGS: Clear on auscultation. ABDOMEN: Obese,soft,no organomegaly,no palpable masses. EXTREMITIES: No calf tenderness,stasis changes,trace bilateral edema. CBC, BMP 04/21/17 06:00 04/21/17 06:00 IMPRESSION: 1.CHF,partly related to LV diastolic dysfunction. 2.Poor compliance. 3.Hypertension/HCVD. 4.Asthmatic bronchitis. 5.COPD. 6.Morbid obesity. 7.CKD. 8.Intermittent low BP, asymptomatic. RECOMMENdATION: 1.current therapy. 2.Check BP supine and standing. 3.Decrease dose of Betablocker to 50mg.po BID 4.DAily weight. 5.Bedside PT. 6. F/U CBC and BNP.
[2017-04-21] MEDS ORDERED: ONDANSETRON 4 MG TABLET PO PRN (20:14)
--- NOTE | 2017-04-21 21:05 | HOSP ---
Subjective - Review of Symptoms Events since last encounter: Page from RN about reading stat EKG. RN Niall stated that patient had been experiencing nausea, placed call to Dr. Otoole who ordered Zofran and stat EKG. Patient seen and examined. Pt states that she feels nauseous and "something in her chest" but denies chest pain, chest pressure, shortness of breath. Denies sweating, palpitations. Physical Examination Vital Signs: Vital Signs Temperature 98.1 F 04/21/17 18:42 Pulse Rate 66 04/21/17 18:42 Respiratory Rate 20 04/21/17 18:42 Blood Pressure 122/51 04/21/17 18:42 O2 Sat by Pulse Oximetry (%) 100 04/21/17 09:00 Findings/Remarks: GEN: AAOx3, NAD, on nasal canula HEENT: EOMi CV: S1, S2, RRR, no TTP in chest LUNG: Anterior CTA ABD: Distended, uncomfortable sensation with diffuse palpation, no acute abdomen , normoactive BS Labs: CBC, BMP 04/21/17 06:00 04/21/17 06:00 Hospitalist Encounter Assessment: Chart reviewed. Pt is an 82yo F with PMHx of HTN, NIDM, Asthma, COPD, GERD who is admitted for syncope after transient LOC. EKG Findings: Normal sinus rhythm. No ST or T wave changes. HR: appx 70bpm TX: appx 180ms QRS: appx 80ms QTc: appx 400ms Patient's symptoms are likely GI related. Of note, patient has hx of GERD and is not on home Omeprazole. Patient has just received 4mg Zofran. Will monitor. QTc is not prolonged. Visit type - Emergency Visit Emergency Visit: No - New Patient This patient is new to me today: Yes Date on this admission: 04/23/17 - Critical Care Critical Care patient: No
[2017-04-21] MEDS: PANTOPRAZOLE 20 MG TABLET (FP) PO SCH (22:21)
[2017-04-22] MEDS: FUROSEMIDE 40 MG/4 ML INJECTABLE VIAL IVPB SCH ×2 (06:28→13:56)
[2017-04-22] MEDS: glipiZIDE 5 MG TABLET (FP) PO SCH ×2 (06:37→16:18)
[2017-04-22 07:22] LABS: MCH 24.7 pg (25.7-33.7); MCHC 30.9 g/dl (32.0-36.0); MEAN CELL VOLUME 79.7 fl (80-96); MEAN PLT VOLUME 8.9 fl (7.5-11.1); PLATELET COUNT 174 K/MM3 (134-434); RDW 19.7 % (11.6-15.6); WHITE BLOOD COUNT 9.1 K/mm3 (4.0-10.0)
[2017-04-22 07:48] LABS: ANION GAP 7 (8-16); CALCIUM 8.2 mg/dL (8.5-10.1); CO2 30 mmol/L (21-32); CREATININE 1.6 mg/dL (0.55-1.02); GLUCOSE,RANDOM 72 mg/dL (74-106)
[2017-04-22] MEDS ORDERED: PT OWN MED DRAWER 7, Y5N ONE (09:26)
[2017-04-22] MEDS: AMPICILLIN NA/SULBACTAM NA 1.5 GM in SODIUM CHLORIDE 100 ML IVPB SCH ×2 (09:27→21:44)
[2017-04-22] MEDS: METOPROLOL TARTRATE 50 MG TABLET (FP) PO SCH ×2 (09:28→21:45)
[2017-04-22] MEDS: BUDESONIDE/FORMETEROL FUMARATE 80/4.5 mcg INHALER IH SCH ×2 (09:28→21:45)
[2017-04-22] MEDS: ALLOPURINOL 100 MG TABLET (FP) PO SCH (09:28)
[2017-04-22] MEDS: PANTOPRAZOLE 20 MG TABLET (FP) PO SCH (09:28)
[2017-04-22] MEDS: ASPIRIN COATED 81 MG TABLET.EC PO SCH (09:28)
[2017-04-22] MEDS: LISINOPRIL 5 MG TABLET (FP) PO SCH (09:28)
[2017-04-22] MEDS: ACETAMINOPHEN 325 MG TABLET (FP) PO PRN (11:20)
--- NOTE | 2017-04-22 13:57 | PN ---
Progress Note, Physician History of Present Illness: Reports less soreness R LE No fever/ chills - Current Medication List Current Medications: Active Medications Acetaminophen (Tylenol -) 650 mg PO Q6H PRN PRN Reason: FEVER OR PAIN Last Admin: 04/22/17 11:20 Dose: 650 mg Albuterol Sulfate (Ventolin Hfa Inhaler -) 2 puff IH Q4H PRN PRN Reason: SHORT OF BREATH/WHEEZING Allopurinol (Zyloprim -) 100 mg PO DAILY [facility] Last Admin: 04/22/17 09:28 Dose: 100 mg Aspirin (Ecotrin -) 81 mg PO DAILY [facility] Last Admin: 04/22/17 09:28 Dose: 81 mg Budesonide/Formoterol Fumarate (Symbicort 80/4.5mcg -) 2 puff IH BID [facility] Last Admin: 04/22/17 09:28 Dose: 2 puff Clonidine HCl (Catapres Tts Patch -) 0.3 mg TD Q7D@1000 [facility] Last Admin: 04/20/17 10:54 Dose: 0.3 mg Furosemide (Lasix Injection -) 80 mg IVPB BID@0600,1400 [facility] Last Admin: 04/20/17 13:39 Dose: Not Given Furosemide (Lasix Injection -) 40 mg IVPB BID@0600,1400 [facility] Last Admin: 04/22/17 06:28 Dose: 40 mg Glipizide (Glucotrol -) 5 mg PO BID@0700,1630 [facility] Last Admin: 04/22/17 06:37 Dose: 5 mg Ampicillin Sodium/Sulbactam (Sodium 1.5 gm/ Sodium Chloride) 100 mls @ 200 mls/ hr IVPB BID [facility] Last Admin: 04/22/17 09:27 Dose: 200 mls/hr Lisinopril (Prinivil) 5 mg PO DAILY [facility] Last Admin: 04/22/17 09:28 Dose: 5 mg Metoprolol Tartrate (Lopressor -) 50 mg PO BID [facility] Last Admin: 04/22/17 09:28 Dose: 50 mg Ondansetron HCl (Zofran -) 4 mg PO Q6H PRN PRN Reason: NAUSEA Last Admin: 04/21/17 20:33 Dose: 4 mg Pantoprazole Sodium (Protonix -) 20 mg PO DAILY [facility] Last Admin: 04/22/17 09:28 Dose: 20 mg - Objective Vital Signs: Vital Signs Temperature 98.5 F 04/22/17 09:00 Pulse Rate 68 04/22/17 09:00 Respiratory Rate 20 04/22/17 09:00 Blood Pressure 98/48 04/22/17 09:05 O2 Sat by Pulse Oximetry (%) 96 04/22/17 09:00 Constitutional: Yes: No Distress, Obese Eyes: Yes: Conjunctiva Clear Cardiovascular: Yes: Regular Rate and Rhythm, S1, S2 Respiratory: Yes: CTA Bilaterally Gastrointestinal: Yes: Normal Bowel Sounds, Soft, Abdomen, Obese. No: Tenderness Edema: Yes Edema: LLE: 2+, RLE: 2+ Integumentary: Yes: Venous Stasis Changes, Other (erythema, warmth R LE improved ) Labs: CBC, BMP 04/22/17 06:00 04/22/17 06:00 INR, PTT INR 1.12 (0.82-1.09) 04/19/17 10:45 Assessment/Plan Cellulitis R LE improved +wound c/s mixed May substitute Augmentin 875mb po bid x 7d
--- NOTE | 2017-04-22 17:46 | PN ---
Progress Note, Physician History of Present Illness: Pt seen and examined at bedside. She is awake and alert. She says that her breathing is improved today. - Current Medication List Current Medications: Active Medications Acetaminophen (Tylenol -) 650 mg PO Q6H PRN PRN Reason: FEVER OR PAIN Last Admin: 04/22/17 11:20 Dose: 650 mg Albuterol Sulfate (Ventolin Hfa Inhaler -) 2 puff IH Q4H PRN PRN Reason: SHORT OF BREATH/WHEEZING Allopurinol (Zyloprim -) 100 mg PO DAILY [facility] Last Admin: 04/22/17 09:28 Dose: 100 mg Aspirin (Ecotrin -) 81 mg PO DAILY [facility] Last Admin: 04/22/17 09:28 Dose: 81 mg Budesonide/Formoterol Fumarate (Symbicort 80/4.5mcg -) 2 puff IH BID [facility] Last Admin: 04/22/17 09:28 Dose: 2 puff Clonidine HCl (Catapres Tts Patch -) 0.3 mg TD Q7D@1000 [facility] Last Admin: 04/20/17 10:54 Dose: 0.3 mg Furosemide (Lasix Injection -) 80 mg IVPB BID@0600,1400 [facility] Last Admin: 04/20/17 13:39 Dose: Not Given Furosemide (Lasix Injection -) 40 mg IVPB BID@0600,1400 [facility] Last Admin: 04/22/17 13:56 Dose: 40 mg Glipizide (Glucotrol -) 5 mg PO BID@0700,1630 [facility] Last Admin: 04/22/17 16:18 Dose: 5 mg Ampicillin Sodium/Sulbactam (Sodium 1.5 gm/ Sodium Chloride) 100 mls @ 200 mls/ hr IVPB BID [facility] Last Admin: 04/22/17 09:27 Dose: 200 mls/hr Lisinopril (Prinivil) 5 mg PO DAILY [facility] Last Admin: 04/22/17 09:28 Dose: 5 mg Metoprolol Tartrate (Lopressor -) 50 mg PO BID [facility] Last Admin: 04/22/17 09:28 Dose: 50 mg Ondansetron HCl (Zofran -) 4 mg PO Q6H PRN PRN Reason: NAUSEA Last Admin: 04/21/17 20:33 Dose: 4 mg Pantoprazole Sodium (Protonix -) 20 mg PO DAILY [facility] Last Admin: 04/22/17 09:28 Dose: 20 mg - Objective Vital Signs: Vital Signs Temperature 98.6 F 04/22/17 16:48 Pulse Rate 67 04/22/17 16:48 Respiratory Rate 20 04/22/17 16:48 Blood Pressure 116/48 04/22/17 16:48 O2 Sat by Pulse Oximetry (%) 96 04/22/17 09:00 Constitutional: Yes: Calm Eyes: Yes: Conjunctiva Clear Cardiovascular: Yes: S1, S2 Respiratory: Yes: On Nasal O2 Gastrointestinal: Yes: Soft, Abdomen, Obese Genitourinary: Yes: WNL Musculoskeletal: Yes: Muscle Weakness Edema: Yes Edema: LLE: 1+, RLE: 1+ Integumentary: Yes: Venous Stasis Changes Neurological: Yes: Oriented Psychiatric: Yes: Oriented Labs: CBC, BMP 04/22/17 06:00 04/22/17 06:00 INR, PTT INR 1.12 (0.82-1.09) 04/19/17 10:45 Problem List - Problems (1) CHF (congestive heart failure) Code(s): I50.9 - HEART FAILURE, UNSPECIFIED (2) Cellulitis Code(s): L03.90 - CELLULITIS, UNSPECIFIED (3) JAYCOB (acute kidney injury) Code(s): N17.9 - ACUTE KIDNEY FAILURE, UNSPECIFIED Assessment/Plan Current Medications Generic Name Dose Route Start Last Admin Trade Name Freq PRN Reason Stop Dose Admin Acetaminophen 650 mg 04/19/17 20:53 04/22/17 11:20 Tylenol - PO 650 mg Q6H PRN Administration FEVER OR PAIN Albuterol Sulfate 2 puff 04/19/17 15:17 Ventolin Hfa Inhaler - IH Q4H PRN SHORT OF BREATH/WHEEZING Allopurinol 100 mg 04/20/17 10:00 04/22/17 09:28 Zyloprim - PO 100 mg DAILY [facility] Administration Aspirin 81 mg 04/20/17 10:00 04/22/17 09:28 Ecotrin - PO 81 mg DAILY [facility] Administration Budesonide/Formoterol Fumarate 2 puff 04/19/17 22:00 04/22/17 09:28 Symbicort 80/4.5mcg - IH 2 puff BID [facility] Administration Clonidine HCl 0.3 mg 04/20/17 10:00 04/20/17 10:54 Catapres Tts Patch - TD 0.3 mg Q7D@1000 [facility] Administration Furosemide 80 mg 04/20/17 06:00 04/20/17 13:39 Lasix Injection - IVPB Not Given BID@0600,1400 [facility] Furosemide 40 mg 04/21/17 14:00 04/22/17 13:56 Lasix Injection - IVPB 40 mg BID@0600,1400 [facility] Administration Glipizide 5 mg 04/19/17 16:30 04/22/17 16:18 Glucotrol - PO 5 mg BID@0700,1630 [facility] Administration Ampicillin Sodium/Sulbactam 100 mls @ 200 mls/hr 04/19/17 22:00 04/22/17 09:27 Sodium 1.5 gm/ Sodium Chloride IVPB 200 mls/hr BID [facility] Administration Lisinopril 5 mg 04/20/17 10:00 04/22/17 09:28 Prinivil PO 5 mg DAILY [facility] Administration Metoprolol Tartrate 50 mg 04/21/17 22:00 04/22/17 09:28 Lopressor - PO 50 mg BID [facility] Administration Ondansetron HCl 4 mg 04/21/17 20:14 04/21/17 20:33 Zofran - PO 4 mg Q6H PRN Administration NAUSEA Pantoprazole Sodium 20 mg 04/21/17 22:00 04/22/17 09:28 Protonix - PO 20 mg DAILY [facility] Administration Impression 1. JAYCOB 2. dyspnea 3. HTN 4. COPD 5. DM Plan - negative hydro - cont current meds - repeat labs in am - will follow - cont lisinopril Dr Valero
[2017-04-23] MEDS ORDERED: DEXTROSE 50%-WATER - 25 GM/50 ML VIAL IVPUSH ONE ×2 (00:45→00:58)
--- NOTE | 2017-04-23 00:45 | HOSP ---
Physical Examination Vital Signs: Vital Signs Temperature 99.2 F 04/22/17 21:39 Pulse Rate 72 04/22/17 21:39 Respiratory Rate 20 04/22/17 21:39 Blood Pressure 115/52 04/22/17 21:39 O2 Sat by Pulse Oximetry (%) 97 04/22/17 21:00 Labs: CBC, BMP 04/22/17 06:00 04/22/17 06:00 Hospitalist Encounter Assessment: Paged by RN. Patient found to have sugar of 39. Upon examination, patient lethargic and slurring speech. Patient given orange juice and apple sauce. Sugars increased to 47. Plan -D50 bolus -RN to call Dr. Otoole -Will continue to monitor throughout the night Visit type - Emergency Visit Emergency Visit: Yes ED Registration Date: 04/19/17 Care time: The patient presented to the Emergency Department on the above date and was hospitalized for further evaluation of their emergent condition. - New Patient This patient is new to me today: Yes Date on this admission: 04/25/17 - Critical Care Critical Care patient: No
[2017-04-23] MEDS: ACETAMINOPHEN 325 MG TABLET (FP) PO PRN ×2 (03:19→22:13)
[2017-04-23] MEDS: FUROSEMIDE 40 MG/4 ML INJECTABLE VIAL IVPB SCH ×2 (05:42→15:45)
[2017-04-23] MEDS ORDERED: glipiZIDE 5 MG TABLET (FP) PO SCH (07:00)
[2017-04-23 08:02] LABS: ANION GAP 9 (8-16); CALCIUM 8.2 mg/dL (8.5-10.1); CO2 29 mmol/L (21-32); CREATININE 1.8 mg/dL (0.55-1.02); GLUCOSE,RANDOM 58 mg/dL (74-106)
[2017-04-23] MEDS ORDERED: PT OWN MED DRAWER 7, Y5N ONE ×2 (09:14→21:24)
[2017-04-23] MEDS: ALBUTEROL SO4 18 GM HFA INHALER IH PRN (09:34)
[2017-04-23] MEDS: AMPICILLIN NA/SULBACTAM NA 1.5 GM in SODIUM CHLORIDE 100 ML IVPB SCH ×2 (09:35→22:07)
[2017-04-23] MEDS: BUDESONIDE/FORMETEROL FUMARATE 80/4.5 mcg INHALER IH SCH ×2 (09:36→22:18)
[2017-04-23] MEDS: METOPROLOL TARTRATE 50 MG TABLET (FP) PO SCH ×2 (09:36→22:07)
[2017-04-23] MEDS: ALLOPURINOL 100 MG TABLET (FP) PO SCH (09:36)
[2017-04-23] MEDS: PANTOPRAZOLE 20 MG TABLET (FP) PO SCH (09:36)
[2017-04-23] MEDS: ASPIRIN COATED 81 MG TABLET.EC PO SCH (09:36)
[2017-04-23] MEDS: LISINOPRIL 5 MG TABLET (FP) PO SCH (09:36)
--- NOTE | 2017-04-23 12:44 | PN ---
Progress Note (short form) - Note Progress Note: 82 year old AA female,known case of hypertension, recent syncope, NIDDM, bronchial asthma, COPD, hypertension. H/o was recent progressive headache, admitted with sudden LOC. Patient had dyspnea both at rest and on minimal activity. History of fatigue and increased somnolence. Since hospitalization, she has had no further shortness of breath, no PND or orthopnea reported. No cough or expectoration. Still has fatigue and falls asleep frequently. No further pedal edema. Active Medications Acetaminophen (Tylenol -) 650 mg PO Q6H PRN PRN Reason: FEVER OR PAIN Last Admin: 04/23/17 03:19 Dose: 650 mg Albuterol Sulfate (Ventolin Hfa Inhaler -) 2 puff IH Q4H PRN PRN Reason: SHORT OF BREATH/WHEEZING Last Admin: 04/23/17 09:34 Dose: 2 puff Allopurinol (Zyloprim -) 100 mg PO DAILY [facility] Last Admin: 04/23/17 09:36 Dose: 100 mg Aspirin (Ecotrin -) 81 mg PO DAILY [facility] Last Admin: 04/23/17 09:36 Dose: 81 mg Budesonide/Formoterol Fumarate (Symbicort 80/4.5mcg -) 2 puff IH BID [facility] Last Admin: 04/23/17 09:36 Dose: 2 puff Clonidine HCl (Catapres Tts Patch -) 0.3 mg TD Q7D@1000 [facility] Last Admin: 04/20/17 10:54 Dose: 0.3 mg Furosemide (Lasix Injection -) 40 mg IVPB BID@0600,1400 [facility] Last Admin: 04/23/17 05:42 Dose: 40 mg Ampicillin Sodium/Sulbactam (Sodium 1.5 gm/ Sodium Chloride) 100 mls @ 200 mls/ hr IVPB BID [facility] Last Admin: 04/23/17 09:35 Dose: 200 mls/hr Lisinopril (Prinivil) 5 mg PO DAILY [facility] Last Admin: 04/23/17 09:36 Dose: 5 mg Metoprolol Tartrate (Lopressor -) 50 mg PO BID [facility] Last Admin: 04/23/17 09:36 Dose: 50 mg Ondansetron HCl (Zofran -) 4 mg PO Q6H PRN PRN Reason: NAUSEA Last Admin: 04/21/17 20:33 Dose: 4 mg Pantoprazole Sodium (Protonix -) 20 mg PO DAILY [facility] Last Admin: 04/23/17 09:36 Dose: 20 mg 82 year old obese female in no distress,no pallor, cyanosis,clubbing or jaundice Vital Signs - 8 hr 04/23/17 04/23/17 04/23/17 06:00 09:00 09:37 Temperature 98.2 F 98 F Pulse Rate 71 66 Respiratory 20 18 18 Rate Blood Pressure 144/61 121/48 O2 Sat by Pulse 93 L Oximetry (%) 04/23/17 10:31 Temperature Pulse Rate 66 Respiratory Rate Blood Pressure O2 Sat by Pulse 91 L Oximetry (%) NECK: Supple, no JVD,-ve HJR, carotids2+, no bruits or thyromegaly. HEART: PMI was not localised, distant sounds, no murmur or gallops heard LUNGS: Clear on auscultation. ABDOMEN: Obese, soft, no organomegaly, no palpable masses. EXTREMITIES: No calf tenderness, stasis changes, trace bilateral edema. CBC, BMP 04/22/17 06:00 04/23/17 06:00 IMPRESSION: 1. CHF, resolving. 2. Hypertension/HCVD. 3. Asthmatic bronchitis. 4. COPD. 5. Morbid obesity. 6. CKD. 7. Obstructive sleep apnea syndrome needs to be excluded. 8. History of poor compliance. 9. Anemia. RECOMMENDATION: 1. Current therapy. 2. Consider discontinuing IV Lasix and switching to oral form. 3. Check BP supine and standing. 4. Daily weight. 5. Bedside PT. 6. T3, T4, TSH. 7. Sleep study on an outpatient basis. 8. Progressive ambulation.
--- NOTE | 2017-04-23 14:06 | PN ---
Progress Note, Physician Chief Complaint: sugars dropped last pm no complaints now p/t tx today legs better vss plan chris compreesion devices for hcr lyphodema nh adir when readey spoke to pt cont tx as is hold dm meds pt had bm last pm encourage po intake - Current Medication List Current Medications: Active Medications Acetaminophen (Tylenol -) 650 mg PO Q6H PRN PRN Reason: FEVER OR PAIN Last Admin: 04/23/17 03:19 Dose: 650 mg Albuterol Sulfate (Ventolin Hfa Inhaler -) 2 puff IH Q4H PRN PRN Reason: SHORT OF BREATH/WHEEZING Last Admin: 04/23/17 09:34 Dose: 2 puff Allopurinol (Zyloprim -) 100 mg PO DAILY [facility] Last Admin: 04/23/17 09:36 Dose: 100 mg Aspirin (Ecotrin -) 81 mg PO DAILY [facility] Last Admin: 04/23/17 09:36 Dose: 81 mg Budesonide/Formoterol Fumarate (Symbicort 80/4.5mcg -) 2 puff IH BID [facility] Last Admin: 04/23/17 09:36 Dose: 2 puff Clonidine HCl (Catapres Tts Patch -) 0.3 mg TD Q7D@1000 [facility] Last Admin: 04/20/17 10:54 Dose: 0.3 mg Furosemide (Lasix Injection -) 40 mg IVPB BID@0600,1400 [facility] Last Admin: 04/23/17 05:42 Dose: 40 mg Ampicillin Sodium/Sulbactam (Sodium 1.5 gm/ Sodium Chloride) 100 mls @ 200 mls/ hr IVPB BID [facility] Last Admin: 04/23/17 09:35 Dose: 200 mls/hr Lisinopril (Prinivil) 5 mg PO DAILY [facility] Last Admin: 04/23/17 09:36 Dose: 5 mg Metoprolol Tartrate (Lopressor -) 50 mg PO BID [facility] Last Admin: 04/23/17 09:36 Dose: 50 mg Ondansetron HCl (Zofran -) 4 mg PO Q6H PRN PRN Reason: NAUSEA Last Admin: 04/21/17 20:33 Dose: 4 mg Pantoprazole Sodium (Protonix -) 20 mg PO DAILY [facility] Last Admin: 04/23/17 09:36 Dose: 20 mg - Objective Vital Signs: Vital Signs Temperature 98 F 04/23/17 09:37 Pulse Rate 66 04/23/17 10:31 Respiratory Rate 18 04/23/17 09:37 Blood Pressure 121/48 04/23/17 09:37 O2 Sat by Pulse Oximetry (%) 91 L 04/23/17 10:31 Labs: CBC, BMP 04/22/17 06:00 04/23/17 06:00 INR, PTT INR 1.12 (0.82-1.09) 04/19/17 10:45
--- NOTE | 2017-04-23 18:13 | PN ---
Progress Note, Physician History of Present Illness: Pt seen and examined at bedside. She denies shortness of breath. - Current Medication List Current Medications: Active Medications Acetaminophen (Tylenol -) 650 mg PO Q6H PRN PRN Reason: FEVER OR PAIN Last Admin: 04/23/17 03:19 Dose: 650 mg Albuterol Sulfate (Ventolin Hfa Inhaler -) 2 puff IH Q4H PRN PRN Reason: SHORT OF BREATH/WHEEZING Last Admin: 04/23/17 09:34 Dose: 2 puff Allopurinol (Zyloprim -) 100 mg PO DAILY [facility] Last Admin: 04/23/17 09:36 Dose: 100 mg Aspirin (Ecotrin -) 81 mg PO DAILY [facility] Last Admin: 04/23/17 09:36 Dose: 81 mg Budesonide/Formoterol Fumarate (Symbicort 80/4.5mcg -) 2 puff IH BID [facility] Last Admin: 04/23/17 09:36 Dose: 2 puff Clonidine HCl (Catapres Tts Patch -) 0.3 mg TD Q7D@1000 [facility] Last Admin: 04/20/17 10:54 Dose: 0.3 mg Furosemide (Lasix Injection -) 40 mg IVPB BID@0600,1400 [facility] Last Admin: 04/23/17 15:45 Dose: 40 mg Ampicillin Sodium/Sulbactam (Sodium 1.5 gm/ Sodium Chloride) 100 mls @ 200 mls/ hr IVPB BID [facility] Last Admin: 04/23/17 09:35 Dose: 200 mls/hr Lisinopril (Prinivil) 5 mg PO DAILY [facility] Last Admin: 04/23/17 09:36 Dose: 5 mg Metoprolol Tartrate (Lopressor -) 50 mg PO BID [facility] Last Admin: 04/23/17 09:36 Dose: 50 mg Ondansetron HCl (Zofran -) 4 mg PO Q6H PRN PRN Reason: NAUSEA Last Admin: 04/21/17 20:33 Dose: 4 mg Pantoprazole Sodium (Protonix -) 20 mg PO DAILY [facility] Last Admin: 04/23/17 09:36 Dose: 20 mg - Objective Vital Signs: Vital Signs Temperature 97.6 F 04/23/17 15:18 Pulse Rate 66 04/23/17 15:18 Respiratory Rate 18 04/23/17 15:18 Blood Pressure 128/53 04/23/17 15:18 O2 Sat by Pulse Oximetry (%) 91 L 04/23/17 10:31 Constitutional: Yes: Calm Eyes: Yes: Conjunctiva Clear HENT: Yes: Atraumatic Cardiovascular: Yes: S1, S2 Respiratory: Yes: On Nasal O2 Gastrointestinal: Yes: Soft Genitourinary: Yes: WNL Edema: Yes Edema: LLE: 1+, RLE: 1+ Neurological: Yes: Oriented Psychiatric: Yes: Oriented Labs: CBC, BMP 04/22/17 06:00 04/23/17 06:00 INR, PTT INR 1.12 (0.82-1.09) 04/19/17 10:45 Problem List - Problems (1) CHF (congestive heart failure) Code(s): I50.9 - HEART FAILURE, UNSPECIFIED (2) Cellulitis Code(s): L03.90 - CELLULITIS, UNSPECIFIED (3) JAYCOB (acute kidney injury) Code(s): N17.9 - ACUTE KIDNEY FAILURE, UNSPECIFIED Assessment/Plan Current Medications Generic Name Dose Route Start Last Admin Trade Name Freq PRN Reason Stop Dose Admin Acetaminophen 650 mg 04/19/17 20:53 04/23/17 03:19 Tylenol - PO 650 mg Q6H PRN Administration FEVER OR PAIN Albuterol Sulfate 2 puff 04/19/17 15:17 04/23/17 09:34 Ventolin Hfa Inhaler - IH 2 puff Q4H PRN Administration SHORT OF BREATH/WHEEZING Allopurinol 100 mg 04/20/17 10:00 04/23/17 09:36 Zyloprim - PO 100 mg DAILY [facility] Administration Aspirin 81 mg 04/20/17 10:00 04/23/17 09:36 Ecotrin - PO 81 mg DAILY [facility] Administration Budesonide/Formoterol Fumarate 2 puff 04/19/17 22:00 04/23/17 09:36 Symbicort 80/4.5mcg - IH 2 puff BID [facility] Administration Clonidine HCl 0.3 mg 04/20/17 10:00 04/20/17 10:54 Catapres Tts Patch - TD 0.3 mg Q7D@1000 [facility] Administration Furosemide 40 mg 04/21/17 14:00 04/23/17 15:45 Lasix Injection - IVPB 40 mg BID@0600,1400 [facility] Administration Ampicillin Sodium/Sulbactam 100 mls @ 200 mls/hr 04/19/17 22:00 04/23/17 09:35 Sodium 1.5 gm/ Sodium Chloride IVPB 200 mls/hr BID [facility] Administration Lisinopril 5 mg 04/20/17 10:00 04/23/17 09:36 Prinivil PO 5 mg DAILY [facility] Administration Metoprolol Tartrate 50 mg 04/21/17 22:00 04/23/17 09:36 Lopressor - PO 50 mg BID [facility] Administration Ondansetron HCl 4 mg 04/21/17 20:14 04/21/17 20:33 Zofran - PO 4 mg Q6H PRN Administration NAUSEA Pantoprazole Sodium 20 mg 04/21/17 22:00 04/23/17 09:36 Protonix - PO 20 mg DAILY [facility] Administration Impression 1. JAYCOB 2. dyspnea 3. HTN 4. COPD 5. DM Plan - switch lasix to PO - repeat labs in am - monitor volume status - will follow - cont lisinopril Dr Valero
[2017-04-24 07:22] LABS: BASOPHIL 0.3 % (0-2.0); EOSINOPHIL 6.2 % (0-4.5); MCH 24.7 pg (25.7-33.7); MCHC 30.7 g/dl (32.0-36.0); MEAN CELL VOLUME 80.4 fl (80-96); MEAN PLT VOLUME 9.6 fl (7.5-11.1); NEUTROPHILS 75.7 % (42.8-82.8); PLATELET COUNT 195 K/MM3 (134-434)
[2017-04-24 08:01] LABS: ANION GAP 7 (8-16); CALCIUM 8.5 mg/dL (8.5-10.1); CO2 33 mmol/L (21-32); GLUCOSE,RANDOM 104 mg/dL (74-106)
[2017-04-24 08:06] LABS: CREATININE 1.4 mg/dL (0.55-1.02)
[2017-04-24] MEDS ORDERED: SODIUM POLYSTYRENE SULFONATE 15 GM/60 ML BOTTLE PO ONE (09:59)
[2017-04-24] MEDS ORDERED: PT OWN MED DRAWER 7, Y5N ONE (10:46)
[2017-04-24] MEDS: LISINOPRIL 5 MG TABLET (FP) PO SCH (11:00)
[2017-04-24] MEDS: METOPROLOL TARTRATE 50 MG TABLET (FP) PO SCH ×2 (11:00→21:35)
[2017-04-24] MEDS: PANTOPRAZOLE 20 MG TABLET (FP) PO SCH (11:00)
[2017-04-24] MEDS: AMPICILLIN NA/SULBACTAM NA 1.5 GM in SODIUM CHLORIDE 100 ML IVPB SCH ×2 (11:00→21:35)
[2017-04-24] MEDS: ASPIRIN COATED 81 MG TABLET.EC PO SCH (11:00)
[2017-04-24] MEDS: ALLOPURINOL 100 MG TABLET (FP) PO SCH (11:01)
[2017-04-24] MEDS: ACETAMINOPHEN 325 MG TABLET (FP) PO PRN (11:06)
[2017-04-24] MEDS: BUDESONIDE/FORMETEROL FUMARATE 80/4.5 mcg INHALER IH SCH ×2 (11:17→21:35)
--- NOTE | 2017-04-24 12:04 | PN ---
Progress Note (short form) - Note Progress Note: RENAL Pt seen and examined comfortable denied complaints Last Vital Signs Temp Pulse Resp BP Pulse Ox 98.3 F 83 18 149/60 96 04/24/17 10:43 04/24/17 10:43 04/24/17 10:43 04/24/17 10:43 04/23/17 21:00 lungs clear cvs s1s2 rr +PACO abd soft ext bilat dvt boots neuro a+o CBC, BMP 04/24/17 06:00 04/24/17 06:00 Current Medications Generic Name Dose Route Start Last Admin Trade Name Freq PRN Reason Stop Dose Admin Acetaminophen 650 mg 04/19/17 20:53 04/24/17 11:06 Tylenol - PO 650 mg Q6H PRN Administration FEVER OR PAIN Albuterol Sulfate 2 puff 04/19/17 15:17 04/23/17 09:34 Ventolin Hfa Inhaler - IH 2 puff Q4H PRN Administration SHORT OF BREATH/WHEEZING Allopurinol 100 mg 04/20/17 10:00 04/24/17 11:01 Zyloprim - PO 100 mg DAILY EULALIO Administration Aspirin 81 mg 04/20/17 10:00 04/24/17 11:00 Ecotrin - PO 81 mg DAILY EULALIO Administration Budesonide/Formoterol Fumarate 2 puff 04/19/17 22:00 04/24/17 11:17 Symbicort 80/4.5mcg - IH 2 puff BID EULALIO Administration Clonidine HCl 0.3 mg 04/20/17 10:00 04/20/17 10:54 Catapres Tts Patch - TD 0.3 mg Q7D@1000 EULALIO Administration Furosemide 40 mg 04/24/17 14:00 Lasix - PO BID@0600,1400 EULALIO Ampicillin Sodium/Sulbactam 100 mls @ 200 mls/hr 04/19/17 22:00 04/24/17 11:00 Sodium 1.5 gm/ Sodium Chloride IVPB 200 mls/hr BID EULALIO Administration Lisinopril 5 mg 04/20/17 10:00 04/24/17 11:00 Prinivil PO 5 mg DAILY EULALIO Administration Metoprolol Tartrate 50 mg 04/21/17 22:00 04/24/17 11:00 Lopressor - PO 50 mg BID EULALIO Administration Ondansetron HCl 4 mg 04/21/17 20:14 04/21/17 20:33 Zofran - PO 4 mg Q6H PRN Administration NAUSEA Pantoprazole Sodium 20 mg 04/21/17 22:00 04/24/17 11:00 Protonix - PO 20 mg DAILY EULALIO Administration Impression 1. JAYCOB 2. dyspnea 3. HTN 4. COPD 5. DM 6 hematuria may have beeb due to [place] Plan continue current management needs further evaluation of hematuria. repeat ua/Urology? continue AVA MV
[2017-04-24] MEDS: FUROSEMIDE 40 MG TABLET (FP) PO SCH (15:15)
[2017-04-24] MEDS: BACITRACIN 15 GM TUBE TOPICAL OINTMENT TP SCH (21:35)
[2017-04-25] MEDS: FUROSEMIDE 40 MG TABLET (FP) PO SCH ×2 (06:11→14:51)
[2017-04-25 07:37] LABS: BASOPHIL 0.4 % (0-2.0); MCH 24.7 pg (25.7-33.7); MCHC 30.7 g/dl (32.0-36.0); MEAN CELL VOLUME 80.4 fl (80-96); MEAN PLT VOLUME 9.2 fl (7.5-11.1); NEUTROPHILS 73.9 % (42.8-82.8); PLATELET COUNT 190 K/MM3 (134-434); RDW 19.7 % (11.6-15.6); WHITE BLOOD COUNT 8.1 K/mm3 (4.0-10.0)
[2017-04-25 07:58] LABS: ANION GAP 7 (8-16); CALCIUM 8.5 mg/dL (8.5-10.1); CO2 33 mmol/L (21-32); CREATININE 1.3 mg/dL (0.55-1.02); GLUCOSE,RANDOM 132 mg/dL (74-106)
[2017-04-25] MEDS ORDERED: PT OWN MED DRAWER 7, Y5N ONE (10:20)
--- NOTE | 2017-04-25 10:22 | PN ---
Progress Note (short form) - Note Progress Note: RENAL Pt seen and examined comfortable denied complaints Last Vital Signs Temp Pulse Resp BP Pulse Ox 97.5 F L 72 18 122/56 98 04/25/17 09:00 04/25/17 10:01 04/25/17 09:00 04/25/17 09:00 04/25/17 10:01 lungs clear cvs s1s2 rr +PACO abd soft ext legs wrinkled, scaly skin neuro a+o CBC, BMP 04/25/17 06:20 04/25/17 06:20 Current Medications Generic Name Dose Route Start Last Admin Trade Name Freq PRN Reason Stop Dose Admin Acetaminophen 650 mg 04/19/17 20:53 04/24/17 11:06 Tylenol - PO 650 mg Q6H PRN Administration FEVER OR PAIN Albuterol Sulfate 2 puff 04/19/17 15:17 04/23/17 09:34 Ventolin Hfa Inhaler - IH 2 puff Q4H PRN Administration SHORT OF BREATH/WHEEZING Allopurinol 100 mg 04/20/17 10:00 04/24/17 11:01 Zyloprim - PO 100 mg DAILY [facility] Administration Aspirin 81 mg 04/20/17 10:00 04/24/17 11:00 Ecotrin - PO 81 mg DAILY [facility] Administration Bacitracin 1 applic 04/24/17 18:45 04/24/17 21:35 Bacitracin - TP 1 applic DAILY [facility] Administration Budesonide/Formoterol Fumarate 2 puff 04/19/17 22:00 04/24/17 21:35 Symbicort 80/4.5mcg - IH 2 puff BID [facility] Administration Clonidine HCl 0.3 mg 04/20/17 10:00 04/20/17 10:54 Catapres Tts Patch - TD 0.3 mg Q7D@1000 [facility] Administration Furosemide 40 mg 04/24/17 14:00 04/25/17 06:11 Lasix - PO 40 mg BID@0600,1400 [facility] Administration Ampicillin Sodium/Sulbactam 100 mls @ 200 mls/hr 04/19/17 22:00 04/24/17 21:35 Sodium 1.5 gm/ Sodium Chloride IVPB 200 mls/hr BID [facility] Administration Lisinopril 5 mg 04/20/17 10:00 04/24/17 11:00 Prinivil PO 5 mg DAILY [facility] Administration Metoprolol Tartrate 50 mg 04/21/17 22:00 04/24/17 21:35 Lopressor - PO 50 mg BID [facility] Administration Ondansetron HCl 4 mg 04/21/17 20:14 04/21/17 20:33 Zofran - PO 4 mg Q6H PRN Administration NAUSEA Pantoprazole Sodium 20 mg 04/21/17 22:00 04/24/17 11:00 Protonix - PO 20 mg DAILY [facility] Administration Impression 1. JAYCOB improved 2. dyspnea 3. HTN 4. COPD 5. DM 6 hematuria may have beeb due to [place] Plan continue current management needs further evaluation of hematuria. repeat ua/Urology? continue AVA MV
[2017-04-25] MEDS: AMPICILLIN NA/SULBACTAM NA 1.5 GM in SODIUM CHLORIDE 100 ML IVPB SCH ×2 (10:27→11:44)
[2017-04-25] MEDS: METOPROLOL TARTRATE 50 MG TABLET (FP) PO SCH ×2 (10:27→21:25)
[2017-04-25] MEDS: ALLOPURINOL 100 MG TABLET (FP) PO SCH (10:27)
[2017-04-25] MEDS: ASPIRIN COATED 81 MG TABLET.EC PO SCH (10:27)
[2017-04-25] MEDS: LISINOPRIL 5 MG TABLET (FP) PO SCH (10:27)
[2017-04-25] MEDS: BUDESONIDE/FORMETEROL FUMARATE 80/4.5 mcg INHALER IH SCH ×2 (10:27→21:26)
[2017-04-25] MEDS: PANTOPRAZOLE 20 MG TABLET (FP) PO SCH (10:27)
[2017-04-25] MEDS: BACITRACIN 15 GM TUBE TOPICAL OINTMENT TP SCH (10:30)
--- NOTE | 2017-04-25 11:32 | PN ---
Progress Note, Physician Chief Complaint: states feels much better less sob oob ojk p/t ok pt now exspericing sapf scolded syn vs drud rx vs autoimune rx bm ok apetite ok troble getting iv also wbc ok no temp sugg d/c atxb cont maggie ointment legs w wraps od hydrcortizon palms bod - Current Medication List Current Medications: Active Medications Acetaminophen (Tylenol -) 650 mg PO Q6H PRN PRN Reason: FEVER OR PAIN Last Admin: 04/24/17 11:06 Dose: 650 mg Albuterol Sulfate (Ventolin Hfa Inhaler -) 2 puff IH Q4H PRN PRN Reason: SHORT OF BREATH/WHEEZING Last Admin: 04/23/17 09:34 Dose: 2 puff Allopurinol (Zyloprim -) 100 mg PO DAILY [facility] Last Admin: 04/25/17 10:27 Dose: 100 mg Aspirin (Ecotrin -) 81 mg PO DAILY [facility] Last Admin: 04/25/17 10:27 Dose: 81 mg Bacitracin (Bacitracin -) 1 applic TP DAILY [facility] Last Admin: 04/25/17 10:30 Dose: 1 applic Budesonide/Formoterol Fumarate (Symbicort 80/4.5mcg -) 2 puff IH BID [facility] Last Admin: 04/25/17 10:27 Dose: 2 puff Clonidine HCl (Catapres Tts Patch -) 0.3 mg TD Q7D@1000 [facility] Last Admin: 04/20/17 10:54 Dose: 0.3 mg Furosemide (Lasix -) 40 mg PO BID@0600,1400 [facility] Last Admin: 04/25/17 06:11 Dose: 40 mg Ampicillin Sodium/Sulbactam (Sodium 1.5 gm/ Sodium Chloride) 100 mls @ 200 mls/ hr IVPB BID [facility] Last Admin: 04/25/17 10:27 Dose: 200 mls/hr Lisinopril (Prinivil) 5 mg PO DAILY [facility] Last Admin: 04/25/17 10:27 Dose: 5 mg Metoprolol Tartrate (Lopressor -) 50 mg PO BID [facility] Last Admin: 04/25/17 10:27 Dose: 50 mg Ondansetron HCl (Zofran -) 4 mg PO Q6H PRN PRN Reason: NAUSEA Last Admin: 04/21/17 20:33 Dose: 4 mg Pantoprazole Sodium (Protonix -) 20 mg PO DAILY [facility] Last Admin: 04/25/17 10:27 Dose: 20 mg - Objective Vital Signs: Vital Signs Temperature 97.5 F L 04/25/17 09:00 Pulse Rate 72 04/25/17 10:01 Respiratory Rate 18 04/25/17 09:00 Blood Pressure 122/56 04/25/17 09:00 O2 Sat by Pulse Oximetry (%) 98 04/25/17 10:01 Labs: CBC, BMP 04/25/17 06:20 04/25/17 06:20 INR, PTT INR 1.12 (0.82-1.09) 04/19/17 10:45
[2017-04-25] MEDS: ACETAMINOPHEN 325 MG TABLET (FP) PO PRN (21:27)
[2017-04-25] MEDS: HYDROCORTISONE 2.5% LOTION - 1 BOTTLE TP PRN (22:26)
[2017-04-26] MEDS: FUROSEMIDE 40 MG TABLET (FP) PO SCH ×2 (05:25→14:51)
[2017-04-26 07:29] LABS: BASOPHIL 0.4 % (0-2.0); EOSINOPHIL 6.3 % (0-4.5); MCH 24.7 pg (25.7-33.7); MCHC 30.8 g/dl (32.0-36.0); MEAN CELL VOLUME 80.1 fl (80-96); MEAN PLT VOLUME 9.7 fl (7.5-11.1); NEUTROPHILS 72.5 % (42.8-82.8); PLATELET COUNT 196 K/MM3 (134-434); RDW 19.9 % (11.6-15.6); WHITE BLOOD COUNT 7.4 K/mm3 (4.0-10.0)
[2017-04-26 08:21] LABS: ANION GAP 8 (8-16); CALCIUM 8.8 mg/dL (8.5-10.1); CO2 32 mmol/L (21-32); CREATININE 1.3 mg/dL (0.55-1.02); GLUCOSE,RANDOM 107 mg/dL (74-106)
[2017-04-26] MEDS ORDERED: PT OWN MED DRAWER 7, Y5N ONE ×2 (09:25→21:56)
[2017-04-26] MEDS: BACITRACIN 15 GM TUBE TOPICAL OINTMENT TP SCH (09:29)
[2017-04-26] MEDS: BUDESONIDE/FORMETEROL FUMARATE 80/4.5 mcg INHALER IH SCH ×2 (09:29→21:59)
[2017-04-26] MEDS: PANTOPRAZOLE 20 MG TABLET (FP) PO SCH (09:29)
[2017-04-26] MEDS: ALBUTEROL SO4 18 GM HFA INHALER IH PRN (09:29)
[2017-04-26] MEDS: ASPIRIN COATED 81 MG TABLET.EC PO SCH (09:30)
[2017-04-26] MEDS: ALLOPURINOL 100 MG TABLET (FP) PO SCH (09:30)
[2017-04-26] MEDS ORDERED: cloNIDine-TTS 0.3 MG /24 HRS PATCH.TDWK TD SCH (10:00)
[2017-04-26] MEDS: METOPROLOL TARTRATE 50 MG TABLET (FP) PO SCH ×2 (13:27→21:59)
[2017-04-26] MEDS: LISINOPRIL 5 MG TABLET (FP) PO SCH (13:27)
--- NOTE | 2017-04-26 14:59 | PN ---
Progress Note, Physician History of Present Illness: Pt seen and examined at bedside. She is awake and alert. She denies shortness of breath. - Current Medication List Current Medications: Active Medications Acetaminophen (Tylenol -) 650 mg PO Q6H PRN PRN Reason: FEVER OR PAIN Last Admin: 04/25/17 21:27 Dose: 650 mg Albuterol Sulfate (Ventolin Hfa Inhaler -) 2 puff IH Q4H PRN PRN Reason: SHORT OF BREATH/WHEEZING Last Admin: 04/26/17 09:29 Dose: 2 puff Allopurinol (Zyloprim -) 100 mg PO DAILY [facility] Last Admin: 04/26/17 09:30 Dose: 100 mg Aspirin (Ecotrin -) 81 mg PO DAILY [facility] Last Admin: 04/26/17 09:30 Dose: 81 mg Bacitracin (Bacitracin -) 1 applic TP DAILY [facility] Last Admin: 04/26/17 09:29 Dose: 1 applic Budesonide/Formoterol Fumarate (Symbicort 80/4.5mcg -) 2 puff IH BID [facility] Last Admin: 04/26/17 09:29 Dose: 2 puff Clonidine HCl (Catapres Tts Patch -) 0.3 mg TD Q7D@1000 [facility] Last Admin: 04/20/17 10:54 Dose: 0.3 mg Furosemide (Lasix -) 40 mg PO BID@0600,1400 [facility] Last Admin: 04/26/17 05:25 Dose: 40 mg Hydrocortisone (Hytone 2.5% Lotion -) 0.25 applic TP BID PRN; Protocol PRN Reason: rash Stop: 04/29/17 22:01 Last Admin: 04/25/17 22:26 Dose: 1 appful Lisinopril (Prinivil) 5 mg PO DAILY [facility] Last Admin: 04/26/17 13:27 Dose: Not Given Metoprolol Tartrate (Lopressor -) 50 mg PO BID [facility] Last Admin: 04/26/17 13:27 Dose: Not Given Ondansetron HCl (Zofran -) 4 mg PO Q6H PRN PRN Reason: NAUSEA Last Admin: 04/21/17 20:33 Dose: 4 mg Pantoprazole Sodium (Protonix -) 20 mg PO DAILY [facility] Last Admin: 04/26/17 09:29 Dose: 20 mg - Objective Vital Signs: Vital Signs Temperature 97.9 F 04/26/17 05:42 Pulse Rate 76 04/26/17 14:16 Respiratory Rate 20 04/26/17 05:42 Blood Pressure 131/69 04/26/17 05:42 O2 Sat by Pulse Oximetry (%) 98 04/26/17 14:16 Constitutional: Yes: Calm Eyes: Yes: Conjunctiva Clear HENT: Yes: Atraumatic Neck: Yes: Supple Cardiovascular: Yes: S1, S2 Respiratory: Yes: CTA Bilaterally Gastrointestinal: Yes: Normal Bowel Sounds, Soft Musculoskeletal: Yes: WNL Edema: No Neurological: Yes: Oriented Psychiatric: Yes: Oriented Labs: CBC, BMP 04/26/17 06:30 04/26/17 06:30 INR, PTT INR 1.12 (0.82-1.09) 04/19/17 10:45 Problem List - Problems (1) CHF (congestive heart failure) Code(s): I50.9 - HEART FAILURE, UNSPECIFIED (2) Cellulitis Code(s): L03.90 - CELLULITIS, UNSPECIFIED (3) JAYCOB (acute kidney injury) Code(s): N17.9 - ACUTE KIDNEY FAILURE, UNSPECIFIED Assessment/Plan Current Medications Generic Name Dose Route Start Last Admin Trade Name Freq PRN Reason Stop Dose Admin Acetaminophen 650 mg 04/19/17 20:53 04/25/17 21:27 Tylenol - PO 650 mg Q6H PRN Administration FEVER OR PAIN Albuterol Sulfate 2 puff 04/19/17 15:17 04/26/17 09:29 Ventolin Hfa Inhaler - IH 2 puff Q4H PRN Administration SHORT OF BREATH/WHEEZING Allopurinol 100 mg 04/20/17 10:00 04/26/17 09:30 Zyloprim - PO 100 mg DAILY [facility] Administration Aspirin 81 mg 04/20/17 10:00 04/26/17 09:30 Ecotrin - PO 81 mg DAILY [facility] Administration Bacitracin 1 applic 04/24/17 18:45 04/26/17 09:29 Bacitracin - TP 1 applic DAILY [facility] Administration Budesonide/Formoterol Fumarate 2 puff 04/19/17 22:00 04/26/17 09:29 Symbicort 80/4.5mcg - IH 2 puff BID [facility] Administration Clonidine HCl 0.3 mg 04/20/17 10:00 04/20/17 10:54 Catapres Tts Patch - TD 0.3 mg Q7D@1000 [facility] Administration Furosemide 40 mg 04/24/17 14:00 04/26/17 05:25 Lasix - PO 40 mg BID@0600,1400 [facility] Administration Hydrocortisone 0.25 applic 04/25/17 11:33 04/25/17 22:26 Hytone 2.5% Lotion - TP 04/29/17 22:01 1 appful BID PRN Administration rash Protocol Lisinopril 5 mg 04/20/17 10:00 04/26/17 13:27 Prinivil PO Not Given DAILY [facility] Metoprolol Tartrate 50 mg 04/21/17 22:00 04/26/17 13:27 Lopressor - PO Not Given BID [facility] Ondansetron HCl 4 mg 04/21/17 20:14 04/21/17 20:33 Zofran - PO 4 mg Q6H PRN Administration NAUSEA Pantoprazole Sodium 20 mg 04/21/17 22:00 04/26/17 09:29 Protonix - PO 20 mg DAILY [facility] Administration Impression 1. JAYCOB 2. dyspnea 3. HTN 4. COPD 5. DM 6. microscopic hematuria Plan - cont lasix - 2 gram sodium diet - cont with pete - repeat ua - renal function is stabilizing Dr Valero
[2017-04-26] MEDS: ACETAMINOPHEN 325 MG TABLET (FP) PO PRN (21:59)
[2017-04-27] MEDS: FUROSEMIDE 40 MG TABLET (FP) PO SCH ×2 (05:51→14:51)
[2017-04-27] MEDS ORDERED: PT OWN MED DRAWER 7, Y5N ONE (10:58)
[2017-04-27] MEDS: BACITRACIN 15 GM TUBE TOPICAL OINTMENT TP SCH (11:04)
[2017-04-27] MEDS: HYDROCORTISONE 2.5% LOTION - 1 BOTTLE TP PRN (11:04)
[2017-04-27] MEDS: cloNIDine-TTS 0.3 MG /24 HRS PATCH.TDWK TD SCH (11:05)
[2017-04-27] MEDS: ALLOPURINOL 100 MG TABLET (FP) PO SCH (11:07)
[2017-04-27] MEDS: METOPROLOL TARTRATE 50 MG TABLET (FP) PO SCH (11:08)
[2017-04-27] MEDS: PANTOPRAZOLE 20 MG TABLET (FP) PO SCH (11:08)
[2017-04-27] MEDS: BUDESONIDE/FORMETEROL FUMARATE 80/4.5 mcg INHALER IH SCH (11:08)
[2017-04-27] MEDS: ASPIRIN COATED 81 MG TABLET.EC PO SCH (11:08)
[2017-04-27] MEDS: LISINOPRIL 5 MG TABLET (FP) PO SCH (11:08)
[2017-04-27 13:42] LABS: ANION GAP 8 (8-16); CALCIUM 8.3 mg/dL (8.5-10.1); CO2 34 mmol/L (21-32); CREATININE 1.1 mg/dL (0.55-1.02); GLUCOSE,RANDOM 97 mg/dL (74-106)
[2017-04-27 14:09] VITALS: BP 124/57; PULSE 67; TEMP 98
--- NOTE | 2017-04-27 17:08 | PN ---
Progress Note, Physician History of Present Illness: Pt seen and examined at bedside. She is awake and alert. She denies shortness of breath. - Current Medication List Current Medications: Active Medications Acetaminophen (Tylenol -) 650 mg PO Q6H PRN PRN Reason: FEVER OR PAIN Last Admin: 04/26/17 21:59 Dose: 650 mg Albuterol Sulfate (Ventolin Hfa Inhaler -) 2 puff IH Q4H PRN PRN Reason: SHORT OF BREATH/WHEEZING Last Admin: 04/26/17 09:29 Dose: 2 puff Allopurinol (Zyloprim -) 100 mg PO DAILY [facility] Last Admin: 04/27/17 11:07 Dose: 100 mg Aspirin (Ecotrin -) 81 mg PO DAILY [facility] Last Admin: 04/27/17 11:08 Dose: 81 mg Bacitracin (Bacitracin -) 1 applic TP DAILY [facility] Last Admin: 04/27/17 11:04 Dose: 1 applic Budesonide/Formoterol Fumarate (Symbicort 80/4.5mcg -) 2 puff IH BID [facility] Last Admin: 04/27/17 11:08 Dose: 2 puff Clonidine HCl (Catapres Tts Patch -) 0.3 mg TD Q7D@1000 [facility] Last Admin: 04/27/17 11:05 Dose: 0.3 mg Furosemide (Lasix -) 40 mg PO BID@0600,1400 [facility] Last Admin: 04/27/17 14:51 Dose: Not Given Hydrocortisone (Hytone 2.5% Lotion -) 0.25 applic TP BID PRN; Protocol PRN Reason: rash Stop: 04/29/17 22:01 Last Admin: 04/27/17 11:04 Dose: 1 appful Lisinopril (Prinivil) 5 mg PO DAILY [facility] Last Admin: 04/27/17 11:08 Dose: 5 mg Metoprolol Tartrate (Lopressor -) 50 mg PO BID [facility] Last Admin: 04/27/17 11:08 Dose: 50 mg Ondansetron HCl (Zofran -) 4 mg PO Q6H PRN PRN Reason: NAUSEA Last Admin: 04/21/17 20:33 Dose: 4 mg Pantoprazole Sodium (Protonix -) 20 mg PO DAILY [facility] Last Admin: 04/27/17 11:08 Dose: 20 mg - Objective Vital Signs: Vital Signs Temperature 98 F 09/26/17 13:58 Pulse Rate 67 04/27/17 13:58 Respiratory Rate 20 04/27/17 13:58 Blood Pressure 124/57 04/27/17 13:58 O2 Sat by Pulse Oximetry (%) 97 04/27/17 11:30 Constitutional: Yes: Calm Eyes: Yes: Conjunctiva Clear HENT: Yes: Atraumatic Neck: Yes: Supple Cardiovascular: Yes: S1, S2 Respiratory: Yes: CTA Bilaterally Gastrointestinal: Yes: Soft, Abdomen, Obese Genitourinary: Yes: WNL Musculoskeletal: Yes: WNL Edema: Yes Edema: LLE: 1+, RLE: 1+ Neurological: Yes: Oriented Psychiatric: Yes: Oriented Labs: CBC, BMP 04/26/17 06:30 04/27/17 06:00 INR, PTT INR 1.12 (0.82-1.09) 04/19/17 10:45 Problem List - Problems (1) CHF (congestive heart failure) Code(s): I50.9 - HEART FAILURE, UNSPECIFIED (2) Cellulitis Code(s): L03.90 - CELLULITIS, UNSPECIFIED (3) JAYCOB (acute kidney injury) Code(s): N17.9 - ACUTE KIDNEY FAILURE, UNSPECIFIED Assessment/Plan Current Medications Generic Name Dose Route Start Last Admin Trade Name Freq PRN Reason Stop Dose Admin Acetaminophen 650 mg 04/19/17 20:53 04/26/17 21:59 Tylenol - PO 650 mg Q6H PRN Administration FEVER OR PAIN Albuterol Sulfate 2 puff 04/19/17 15:17 04/26/17 09:29 Ventolin Hfa Inhaler - IH 2 puff Q4H PRN Administration SHORT OF BREATH/WHEEZING Allopurinol 100 mg 04/20/17 10:00 04/27/17 11:07 Zyloprim - PO 100 mg DAILY [facility] Administration Aspirin 81 mg 04/20/17 10:00 04/27/17 11:08 Ecotrin - PO 81 mg DAILY [facility] Administration Bacitracin 1 applic 04/24/17 18:45 04/27/17 11:04 Bacitracin - TP 1 applic DAILY [facility] Administration Budesonide/Formoterol Fumarate 2 puff 04/19/17 22:00 04/27/17 11:08 Symbicort 80/4.5mcg - IH 2 puff BID [facility] Administration Clonidine HCl 0.3 mg 04/20/17 10:00 04/27/17 11:05 Catapres Tts Patch - TD 0.3 mg Q7D@1000 [facility] Administration Furosemide 40 mg 04/24/17 14:00 04/27/17 14:51 Lasix - PO Not Given BID@0600,1400 [facility] Hydrocortisone 0.25 applic 04/25/17 11:33 04/27/17 11:04 Hytone 2.5% Lotion - TP 04/29/17 22:01 1 appful BID PRN Administration rash Protocol Lisinopril 5 mg 04/20/17 10:00 04/27/17 11:08 Prinivil PO 5 mg DAILY [facility] Administration Metoprolol Tartrate 50 mg 04/21/17 22:00 04/27/17 11:08 Lopressor - PO 50 mg BID [facility] Administration Ondansetron HCl 4 mg 04/21/17 20:14 04/21/17 20:33 Zofran - PO 4 mg Q6H PRN Administration NAUSEA Pantoprazole Sodium 20 mg 04/21/17 22:00 04/27/17 11:08 Protonix - PO 20 mg DAILY [facility] Administration Impression 1. JAYCOB 2. dyspnea 3. HTN 4. COPD 5. DM 6. microscopic hematuria Plan - cont lasix - increase to 60 in am and 40 in pm on discharge - will need rehab - vascular eval as outpt - will need repeat ua to evaluate hematuria and if persistent will need urology eval Dr Valero
== END 2017-04-27 18:25 | DRG 292 ==
LOC: JER 09:59 → JERBED 13:23 → J7W 15:05
PROVIDERS: ADMIT Family Medicine; ATTEND Family Medicine
DX: I13.0 Hypertensive heart and chronic kidney disease with heart failure and stage 1 through stage 4 chronic kidney disease, or unspecified chronic kidney disease (principal); L03.115 Cellulitis of right lower limb; N17.9 Acute kidney failure, unspecified; Z68.43 Body mass index [BMI] 50.0-59.9, adult; I50.32 Chronic diastolic (congestive) heart failure; L03.116 Cellulitis of left lower limb; E66.01 Morbid (severe) obesity due to excess calories; J44.9 Chronic obstructive pulmonary disease, unspecified; E11.22 Type 2 diabetes mellitus with diabetic chronic kidney disease; N18.9 Chronic kidney disease, unspecified; Z91.81 History of falling; Z87.891 Personal history of nicotine dependence; M54.5 Low back pain; B95.61 Methicillin susceptible Staphylococcus aureus infection as the cause of diseases classified elsewhere; K21.9 Gastro-esophageal reflux disease without esophagitis; S81.002D Unspecified open wound, left knee, subsequent encounter; S81.001D Unspecified open wound, right knee, subsequent encounter; W01.0XXD Fall on same level from slipping, tripping and stumbling without subsequent striking against object, subsequent encounter; R31.29 Other microscopic hematuria; Z79.84 Long term (current) use of oral hypoglycemic drugs
CPT/HCPCS: 36415; 70450-TC; 71010-TC; 76775-TC; 76856-TC; 80048; 80053; 81003; 81015; 82436; 82553; 82570; 83735; 83880; 84100; 84133; 84300; 84484; 85025; 85027; 85610; 86140; 87040; 87070; 87186; 87205; 93005; 93010; 93306-TC; 93971-TC; 97116-GP; 97162-GP; 99285-25